=== PATIENT | male | born 1980 | race Caucasian/White ===

== ENCOUNTER 2018-06-18 01:39 | Emergency (ER) | payer OTHER ==
[2018-06-18 01:59] VITALS: BP 149/100; PULSE 92; RESP 18; TEMP 98
[2018-06-18] MEDS ORDERED: diphenhydrAMINE 50 MG CAP PO STA (02:24)
[2018-06-18] MEDS ORDERED: methylPREDNISolone SOD SUCCI 125 MG/2 ML VIAL IM ONE (02:24)
[2018-06-18] MEDS ORDERED: ACET/COD 300 MG/30 MG STARTER PACK 6 TAB BTL PO STA (02:25)
--- NOTE | 2018-06-18 02:31 | ED ---
Skin/Abscess/FB HPI - General Chief complaint: Skin/Abscess/Foreign Body Stated complaint: RASH,PAIN Time Seen by Provider: 06/18/18 02:12 Source: patient, RN notes reviewed Mode of arrival: ambulatory Limitations: no limitations - History of Present Illness Initial comments: This is a 37-year-old male presents emergency Department with chief complaint of rash. Patient states he went camping states that he was in the [place] and states he developed a rash. Patient states it has gotten much worse. He is seen at [facility] was given 1 chest steroids and given Keflex. Patient states she's been taken Keflex and I has rash all over. Patient denies any difficulty swallowing, difficulty breathing. He states he has rash on his arms, legs, face and he states that his penis has swollen. He states is very painful. - Related Data Home Medications Medication Instructions Recorded Confirmed Dextroamphetamine/Amphetamine 20 mg PO DAILY 06/05/15 06/05/15 [Adderall] Hydrocodone/Acetaminophen [[place] 1 each PO BID 06/05/15 06/05/15 10-325] Lisinopril [Prinivil] 10 mg PO DAILY 06/05/15 06/05/15 Previous Rx's Medication Instructions Recorded Albuterol Sulfate [Proair Hfa] 1 - 2 puff INHALATION Q6HR PRN #1 06/05/15 inhaler HYDROcodone/APAP 10-325MG [[place] 1 each PO Q12H PRN #20 tab 06/05/15 10] predniSONE 20 mg PO BID #10 tab 06/05/15 Pramox-Calamine 1-8% Lotion 1 applic TOPICAL QID #1 bottle 06/18/18 [Caladryl] diphenhydrAMINE [Benadryl] 50 mg PO QID PRN #20 capsule 06/18/18 predniSONE 10 mg PO DIRECTED #30 tab 06/18/18 Allergies Allergy/AdvReac Type Severity Reaction Status Date / Time prochlorperazine edisylate Allergy Unknown Verified 06/18/18 01:59 [From Compazine] prochlorperazine maleate Allergy Unknown Verified 06/18/18 01:59 [From Compazine] Review of Systems ROS Statement: Those systems with pertinent positive or pertinent negative responses have been documented in the HPI. ROS Other: All systems not noted in ROS Statement are negative. Past Medical History Past Medical History: Asthma, COPD, Hypertension, Thyroid Disorder History of Any Multi-Drug Resistant Organisms: None Reported Past Surgical History: Orthopedic Surgery Additional Past Surgical History / Comment(s): Right arm, left hand Past Psychological History: ADD/ADHD Smoking Status: Current every day smoker Past Alcohol Use History: Occasional Past Drug Use History: Marijuana General Exam Limitations: no limitations General appearance: alert, in no apparent distress Head exam: Present: atraumatic, normocephalic, normal inspection ENT exam: Present: normal oropharynx Neck exam: Present: normal inspection. Absent: tenderness, meningismus, lymphadenopathy Respiratory exam: Present: normal lung sounds bilaterally. Absent: respiratory distress, wheezes, rales, rhonchi, stridor Cardiovascular Exam: Present: regular rate, normal rhythm, normal heart sounds. Absent: systolic murmur, diastolic murmur, rubs, gallop, clicks exam: Absent: normal inspection (There is swelling of the penile shaft. No open lesions or sores.) Skin exam: Present: rash (There is diffuse erythematous papular vesicular rash with excoriations on the extremities primary, left lower and also on the neck and face region.) Course Vital Signs 06/18/18 01:54 Temperature 98 F Pulse Rate 92 Respiratory 18 Rate Blood Pressure 149/100 O2 Sat by Pulse 98 Oximetry Medical Decision Making - Medical Decision Making 37-year-old male presented from for rash. Patient has a severe rash secondary to contact dermatitis from poison bertha. Patient we given Solu-Medrol, taper of steroids for 12 days, advised to use Caladryl, oral Benadryl. Patient does have some swelling of his penis secondary to the rash. Disposition Clinical Impression: Contact dermatitis, Poison bertha dermatitis Disposition: HOME SELF-CARE Condition: Stable Instructions: Poison [place]tha (ED) Additional Instructions: Please return to the Emergency Department if symptoms worsen or any other concerns. Prescriptions: diphenhydrAMINE [Benadryl] 50 mg PO QID PRN #20 capsule PRN Reason: Itching Pramox-Calamine 1-8% Lotion [Caladryl] 1 applic TOPICAL QID #1 bottle predniSONE 10 mg PO DIRECTED #30 tab Is patient prescribed a controlled substance at d/c from ED?: No Referrals: Orlando Vaughn MD [Primary Care Provider] - 1-2 days Time of Disposition: 02:30
== END 2018-06-18 02:43 | disposition home or self-care (01) ==
LOC: EC 01:39
DX: L23.7 Allergic contact dermatitis due to plants, except food (principal); I10 Essential (primary) hypertension; F90.9 Attention-deficit hyperactivity disorder, unspecified type; F17.200 Nicotine dependence, unspecified, uncomplicated; Z79.891 Long term (current) use of opiate analgesic; Z79.899 Other long term (current) drug therapy; Z88.8 Allergy status to other drugs, medicaments and biological substances
CPT/HCPCS: 99282; 96372; J2930

== ENCOUNTER 2018-06-25 13:09 | Emergency (ER) | payer OTHER ==
[2018-06-25 13:24] VITALS: BP 135/85; PULSE 82; RESP 20; TEMP 98.2
[2018-06-25] MEDS ORDERED: methylPREDNISolone SOD SUCCI 125 MG/2 ML VIAL IM STA (13:50)
--- NOTE | 2018-06-25 13:55 | ED ---
General Adult HPI - General Chief complaint: Skin/Abscess/Foreign Body Stated complaint: rash, swelling Time Seen by Provider: 06/25/18 13:25 Source: patient, RN notes reviewed Mode of arrival: ambulatory Limitations: no limitations - History of Present Illness Initial comments: Patient 37-year-old male presenting to the emergency room today with a chief complaint of rash over the last 2 weeks. Patient does admit that started as a few spots locally to the right forearm. He states spread from there. He does admit that he has been seen multiple times in the emergency room for this rash over the last 2 weeks. States is currently just using Keflex. States it's very itchy. States he does not feel that it's gotten any better. He states he was taking steroids previously is not having over the last week. Patient admits that he's been using Benadryl at home. Patient denies any other people in the home with similar symptoms. Denies any new contacts. Patient denies any recent fever, chills, shortness of breath, chest pain, back pain, abdominal pain , nausea or vomiting, headaches or visual changes, or any other complaints. - Related Data Home Medications Medication Instructions Recorded Confirmed Dextroamphetamine/Amphetamine 20 mg PO DAILY 06/05/15 06/05/15 [Adderall] Hydrocodone/Acetaminophen [[place] 1 each PO BID 06/05/15 06/05/15 10-325] Lisinopril [Prinivil] 10 mg PO DAILY 06/05/15 06/05/15 Previous Rx's Medication Instructions Recorded Albuterol Sulfate [Proair Hfa] 1 - 2 puff INHALATION Q6HR PRN #1 06/05/15 inhaler HYDROcodone/APAP 10-325MG [[place] 1 each PO Q12H PRN #20 tab 06/05/15 10] predniSONE 20 mg PO BID #10 tab 06/05/15 Pramox-Calamine 1-8% Lotion 1 applic TOPICAL QID #1 bottle 06/18/18 [Caladryl] diphenhydrAMINE [Benadryl] 50 mg PO QID PRN #20 capsule 06/18/18 predniSONE 10 mg PO DIRECTED #30 tab 06/18/18 Famotidine [Pepcid] 20 mg PO BID #20 tablet 06/25/18 Permethrin 5% Cream [Elimite] 1 applic TOPICAL ONCE #1 tube 06/25/18 diphenhydrAMINE [Benadryl] 1 - 2 tab PO Q6HR PRN #30 capsule 06/25/18 predniSONE 40 mg PO DAILY 5 Days tab 06/25/18 Allergies Allergy/AdvReac Type Severity Reaction Status Date / Time prochlorperazine edisylate Allergy Unknown Verified 06/25/18 13:24 [From Compazine] prochlorperazine maleate Allergy Unknown Verified 06/25/18 13:24 [From Compazine] Review of Systems ROS Statement: Those systems with pertinent positive or pertinent negative responses have been documented in the HPI. ROS Other: All systems not noted in ROS Statement are negative. Past Medical History Past Medical History: Asthma, COPD, Hypertension, Thyroid Disorder History of Any Multi-Drug Resistant Organisms: None Reported Past Surgical History: Orthopedic Surgery Additional Past Surgical History / Comment(s): Right arm, left hand Past Psychological History: ADD/ADHD Smoking Status: Current every day smoker Past Alcohol Use History: Occasional Past Drug Use History: Marijuana General Exam - General Exam Comments Initial Comments: General: The patient is awake and alert, in no distress, and does not appear acutely ill. Eye: Pupils are equal, round and reactive to light, extra-ocular movements are intact. No nystagmus. There is normal conjunctiva bilaterally. No signs of icterus. Ears, nose, mouth and throat: There are moist mucous membranes and no oral lesions. Neck: The neck is supple, there is no tenderness or JVD. Musculoskeletal: Normal ROM, no tenderness. Strength 5/5. Sensation intact. Pulses equal bilaterally 2+. Neurological: A&O x 3. CN II-XII intact, There are no obvious motor or sensory deficits. Coordination appears grossly intact. Speech is normal. Skin: Patient does have a blanchable rash to the anterior trunk. Multiple excoriated lesions throughout the upper and lower extremities. Psychiatric: Cooperative, appropriate mood & affect, normal judgment. Limitations: no limitations Course Vital Signs 06/25/18 13:22 Temperature 98.2 F Pulse Rate 82 Respiratory 20 Rate Blood Pressure 135/85 O2 Sat by Pulse 98 Oximetry Medical Decision Making - Medical Decision Making Patient will be treated for ALLERGIC reaction placed back on steroids is advised following up with the product manager over the next 2 days. Advised return for any other concerns. Disposition Clinical Impression: Contact dermatitis Disposition: HOME SELF-CARE Condition: Good Instructions: General Allergic Reaction (ED) Additional Instructions: Please use medication as discussed. Please follow-up with product manager in the next 2 days of symptoms have not improved. Please return to emergency room if the symptoms increase or worsen or for any other concerns. Prescriptions: diphenhydrAMINE [Benadryl] 1 - 2 tab PO Q6HR PRN #30 capsule PRN Reason: Allergic Reaction Famotidine [Pepcid] 20 mg PO BID #20 tablet Permethrin 5% Cream [Elimite] 1 applic TOPICAL ONCE #1 tube predniSONE 40 mg PO DAILY 5 Days tab Is patient prescribed a controlled substance at d/c from ED?: No Referrals: Orlando Vaughn MD [Primary Care Provider] - 1-2 days Time of Disposition: 13:54
== END 2018-06-25 14:15 | disposition home or self-care (01) ==
LOC: EC 13:09
DX: L23.9 Allergic contact dermatitis, unspecified cause (principal); I10 Essential (primary) hypertension; F90.9 Attention-deficit hyperactivity disorder, unspecified type; F17.200 Nicotine dependence, unspecified, uncomplicated; Z79.891 Long term (current) use of opiate analgesic; Z79.899 Other long term (current) drug therapy; Z88.8 Allergy status to other drugs, medicaments and biological substances
CPT/HCPCS: 99282; 96372; J2930

== ENCOUNTER 2019-04-29 00:25 | Emergency (ER) | payer OTHER ==
[2019-04-29 00:34] VITALS: BP 155/93; PULSE 73; RESP 18; TEMP 98.3
[2019-04-29] MEDS ORDERED: LIDOCAINE 1% INJ 10MG/ML (20 ML MDV) SQ ONE (00:46)
[2019-04-29] MEDS ORDERED: PENICILLIN VK 500MG STARTER 4 TAB BTL PO STA (00:47)
[2019-04-29] MEDS ORDERED: HYDROcodone/APAP 10-325MG 1 EACH TAB PO ONE (00:47)
--- NOTE | 2019-04-29 01:07 | ED ---
ENT HPI - General Chief complaint: Dental/Oral Stated complaint: Dental Infection Time Seen by Provider: 04/29/19 00:27 Source: patient Mode of arrival: ambulatory Limitations: no limitations - History of Present Illness Initial comments: 38yo male presenting for right lower dental pain. Patient states that a tooth extracted 2 days prior. He states the clot had fallen out and he has had increasing pain. Patient was seen today by his dentist who removed the tooth at [facility]. He states that he was prescribed antibiotic however the pharmacy was closed, Amoxicillin. He states he has increasing pain he states is not able to tolerate it. Patient denies any facial swelling fever or chills night sweats. Patient denies any chest pain stress of breath. The remaining review of systems (-). Upon arrival patient is well-appearing no signs of acute distress/toxicity. Afebrile. - Related Data Home Medications Medication Instructions Recorded Confirmed Dextroamphetamine/Amphetamine 20 mg PO DAILY 06/05/15 06/05/15 [Adderall] Hydrocodone/Acetaminophen [[place] 1 each PO BID 06/05/15 06/05/15 10-325] Lisinopril [Prinivil] 10 mg PO DAILY 06/05/15 06/05/15 Previous Rx's Medication Instructions Recorded Albuterol Sulfate [Proair Hfa] 1 - 2 puff INHALATION Q6HR PRN #1 06/05/15 inhaler HYDROcodone/APAP 10-325MG [[place] 1 each PO Q12H PRN #20 tab 06/05/15 10] predniSONE 20 mg PO BID #10 tab 06/05/15 Pramox-Calamine 1-8% Lotion 1 applic TOPICAL QID #1 bottle 06/18/18 [Caladryl] diphenhydrAMINE [Benadryl] 50 mg PO QID PRN #20 capsule 06/18/18 predniSONE 10 mg PO DIRECTED #30 tab 06/18/18 Famotidine [Pepcid] 20 mg PO BID #20 tablet 06/25/18 Permethrin 5% Cream [Elimite] 1 applic TOPICAL ONCE #1 tube 06/25/18 diphenhydrAMINE [Benadryl] 1 - 2 tab PO Q6HR PRN #30 capsule 06/25/18 predniSONE 40 mg PO DAILY 5 Days tab 06/25/18 HYDROcodone/APAP 5-325MG [[place] 1 tab PO Q6HR PRN 3 Days #12 tab 04/29/19 5-325] Penicillin V Potassium [Pen Vee K] 500 mg PO QID 7 Days #28 tablet 04/29/19 Allergies Allergy/AdvReac Type Severity Reaction Status Date / Time prochlorperazine edisylate Allergy Unknown Verified 04/29/19 00:34 [From Compazine] prochlorperazine maleate Allergy Unknown Verified 04/29/19 00:34 [From Compazine] Review of Systems ROS Statement: Those systems with pertinent positive or pertinent negative responses have been documented in the HPI. ROS Other: All systems not noted in ROS Statement are negative. Past Medical History Past Medical History: Asthma, COPD, Hypertension, Thyroid Disorder History of Any Multi-Drug Resistant Organisms: None Reported Past Surgical History: Orthopedic Surgery Additional Past Surgical History / Comment(s): Right arm, left hand, Past Psychological History: ADD/ADHD Smoking Status: Current every day smoker Past Alcohol Use History: Occasional Past Drug Use History: Marijuana General Exam - General Exam Comments Initial Comments: General: The patient is awake and alert, in no distress, and does not appear acutely ill. Eye: +3 mm pupils are equal, round and reactive to light, extra-ocular movements are intact. No nystagmus. There is normal conjunctiva bilaterally. No signs of icterus. Ears, nose, mouth and throat: There are moist mucous membranes and no oral lesions. Tooth #30 socket without clot. No swelling or fluctuant abscess. No swelling below the tongue or below the angle of the mandible. Neck: The neck is supple, there is no tenderness or JVD. Cardiovascular: There is a regular rate and rhythm. No murmur, rub or gallop is appreciated. Respiratory: Lungs are clear to auscultation, respirations are non-labored, breath sounds are equal. No wheezes, stridor, rales, or rhonchi. Musculoskeletal: Normal ROM, no tenderness. Strength 5/5. Sensation intact. Pulses equal bilaterally 2+. Neurological: A&O x 3. CN II-XII intact, There are no obvious motor or sensory deficits. Coordination appears grossly intact. Speech is normal. Skin: Skin is warm and dry and no rashes or lesions are noted. Psychiatric: Cooperative, appropriate mood & affect, normal judgment. Limitations: no limitations Course Vital Signs 04/29/19 00:32 Temperature 98.3 F Pulse Rate 73 Respiratory 18 Rate Blood Pressure 155/93 O2 Sat by Pulse 97 Oximetry Medical Decision Making - Medical Decision Making 38 yo male with recent extraction of a right lower tooth presented for increasing pain. Upon examination there is dry socket, there is no evidence of clot. There is no fluctuant abscess or facial swelling on examination. No signs of ludwigs angina. Pt denied constitutional symptoms. Afebrile arrival. I used 1/4 cm iodine packing soaked in 1% lidocaine to pack open socket. Patient tolerated procedure well. Patient given oral analgesics in the ER. At this time feel patient is stable for discharge with outpatient dentist follow-up within the next 24 hours. Return parameters were discussed at length the patient verbalized understanding. Patient was prescribed penicillin VK and emergency department part and provided a starter pack given initial dose ~1PM. Discussed case with Dr. Courtney who is agreeable with plan. Disposition Clinical Impression: Dry socket Disposition: HOME SELF-CARE Condition: Good Instructions (If sedation given, give patient instructions): Dry Socket (ED) Additional Instructions: Please use medication as discussed. Please follow-up with dentist in next 24 hours as discussed. Please return to emergency room if the symptoms increase or worsen or for any other concerns-fever, facial swelling, difficulty breathing. Prescriptions: HYDROcodone/APAP 5-325MG [[place] 5-325] 1 tab PO Q6HR PRN 3 Days #12 tab PRN Reason: Severe Pain Penicillin V Potassium [Pen Vee K] 500 mg PO QID 7 Days #28 tablet Is patient prescribed a controlled substance at d/c from ED?: Yes When asked, does pt state using other controlled substances?: No If prescribed controlled substance>3 days was MAPS reviewed?: Prescribed <3 Days If opioid is for acute pain is fill amount 7 days or less?: Yes If Rx opioid, was Start Talking consent form obtained?: Yes Referrals: Orlando Vaughn MD [Primary Care Provider] - 1-2 days Time of Disposition: 01:28
== END 2019-04-29 01:55 | disposition home or self-care (01) ==
LOC: EC 00:25
DX: M27.3 Alveolitis of jaws (principal); I10 Essential (primary) hypertension; F90.9 Attention-deficit hyperactivity disorder, unspecified type; F17.200 Nicotine dependence, unspecified, uncomplicated; Z79.891 Long term (current) use of opiate analgesic; Z79.899 Other long term (current) drug therapy; Z88.8 Allergy status to other drugs, medicaments and biological substances
CPT/HCPCS: 99282; J2001

== ENCOUNTER → 2019-05-18 | Outpatient (CLI) | payer OTHER ==
--- NOTE | 2019-05-19 07:43 | MR ---
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 FINDINGS: MEDIAL MENISCUS: There is a complex tear of the posterior horn medial meniscus LATERAL MENISCUS: Anterior and posterior horns are intact without tear. CRUCIATE LIGAMENTS: The anterior and posterior cruciate ligaments are intact and unremarkable. COLLATERAL LIGAMENTS: The medial collateral ligament and lateral collateral ligament complex are inta ct and there is fluid surrounding the MCL suggestive of grade 1 strain.. EXTENSOR MECHANISM: Visualized quadriceps and patellar tendons are intact. EFFUSION: Trace amount of fluid within the suprapatellar bursa. POPLITEAL CYST: No popliteal/bundy cyst. TRICOMPARTMENT SPACES: Joint spaces preserved. No erosive changes. BONE MARROW SIGNAL: Areas of marrow edema involving the medial tibial plateau and femoral condyle lik orlnado reactive in the basis of trauma. IMPRESSION: 1. Complex posterior horn medial meniscal tear. Bone contusions involving the medial femoral condyle and medial tibial plateau seen. No fracture line. 2. Grade 1 MCL strain
== END | disposition home or self-care (01) ==
LOC: RADMRIMAIN 21:29
PROVIDERS: ATTEND Family Medicine Sports Medicine
DX: S80.01XA Contusion of right knee, initial encounter (principal); S83.241A Other tear of medial meniscus, current injury, right knee, initial encounter

== ENCOUNTER 2020-04-03 23:36 | Emergency (ER) | payer OTHER ==
[2020-04-03] MEDS ORDERED: SODIUM CHLORIDE 0.9% 1,000 ML IV STA (23:41)
[2020-04-03 23:44] LABS: Glucose,Whole Blood 184 mg/dL (75-99)
--- NOTE | 2020-04-03 23:48 | ED ---
General Adult HPI - General Stated complaint: Syncope Time Seen by Provider: 04/03/20 23:38 Source: patient, EMS, RN notes reviewed, old records reviewed Mode of arrival: EMS Limitations: no limitations - History of Present Illness Initial comments: 39-year-old male presenting with an episode of altered mental status, and agonal respirations. Patient was transported by EMS after having a witnessed collapse. He was initially unresponsive with decreased respirations. He did respond to sternal rub. He has a history of seizure disorder and has not been on seizure medication. There was no witnessed seizure activity according to EMS. He had pinpoint pupils. He is denying any illicit drug use. Denies alcohol. He states he did not feel well earlier in the day and had one episode of vomiting. He denies headache. Denies chest pain. Denies abdominal pain. Denies fever or chills. - Related Data Home Medications Medication Instructions Recorded Confirmed Dextroamphetamine/Amphetamine 20 mg PO DAILY 06/05/15 06/05/15 [Adderall] Hydrocodone/Acetaminophen [[place] 1 each PO BID 06/05/15 06/05/15 10-325] Lisinopril [Prinivil] 10 mg PO DAILY 06/05/15 06/05/15 Previous Rx's Medication Instructions Recorded Albuterol Sulfate [Proair Hfa] 1 - 2 puff INHALATION Q6HR PRN #1 06/05/15 inhaler HYDROcodone/APAP 10-325MG [[place] 1 each PO Q12H PRN #20 tab 06/05/15 10] predniSONE [Deltasone] 20 mg PO BID #10 tab 06/05/15 Pramox-Calamine 1-8% Lotion 1 applic TOPICAL QID #1 bottle 06/18/18 [Caladryl] diphenhydrAMINE [Benadryl] 50 mg PO QID PRN #20 capsule 06/18/18 predniSONE 10 mg PO DIRECTED #30 tab 06/18/18 Famotidine [Pepcid] 20 mg PO BID #20 tablet 06/25/18 Permethrin 5% Cream [Elimite] 1 applic TOPICAL ONCE #1 tube 06/25/18 diphenhydrAMINE [Benadryl] 1 - 2 tab PO Q6HR PRN #30 capsule 06/25/18 predniSONE [Deltasone] 40 mg PO DAILY 5 Days tab 06/25/18 HYDROcodone/APAP 5-325MG [[place] 1 tab PO Q6HR PRN 3 Days #12 tab 04/29/19 5-325] Penicillin V Potassium [Pen Vee K] 500 mg PO QID 7 Days #28 tablet 04/29/19 Allergies Allergy/AdvReac Type Severity Reaction Status Date / Time prochlorperazine edisylate Allergy Unknown Verified 04/29/19 00:34 [From Compazine] prochlorperazine maleate Allergy Unknown Verified 04/29/19 00:34 [From Compazine] Review of Systems ROS Statement: Those systems with pertinent positive or pertinent negative responses have been documented in the HPI. ROS Other: All systems not noted in ROS Statement are negative. Past Medical History Past Medical History: Asthma, COPD, Hypertension, Seizure Disorder, Thyroid Disorder History of Any Multi-Drug Resistant Organisms: None Reported Past Surgical History: Orthopedic Surgery Additional Past Surgical History / Comment(s): Right arm, left hand, Past Psychological History: ADD/ADHD Smoking Status: Current every day smoker Past Alcohol Use History: Occasional Past Drug Use History: Marijuana General Exam Limitations: no limitations General appearance: alert, in distress Head exam: Present: atraumatic, normocephalic Eye exam: Absent: PERRL (Pinpoint pupils bilaterally) ENT exam: Present: mucous membranes dry Neck exam: Present: normal inspection. Absent: tenderness Respiratory exam: Present: normal lung sounds bilaterally. Absent: respiratory distress, wheezes Cardiovascular Exam: Present: regular rate, normal rhythm GI/Abdominal exam: Present: soft. Absent: distended, tenderness, guarding, rebound Extremities exam: Present: normal inspection, normal capillary refill. Absent: pedal edema Neurological exam: Present: alert. Absent: motor sensory deficit Psychiatric exam: Present: flat affect Skin exam: Present: warm, intact, diaphoretic Course Vital Signs 04/03/20 04/04/20 04/04/20 23:40 00:32 01:36 Pulse Rate 80 78 Respiratory 15 10 L 18 Rate Blood Pressure 138/96 139/90 O2 Sat by Pulse 96 100 Oximetry - Reevaluation(s) Reevaluation #1: 04/04/20 00:40 Patient alert and oriented, refusing head CT. EKG Findings - EKG Comments: EKG Findings:: EKG: Normal sinus rhythm, rate of 85, [place] interval 170, QRS duration 94, QTC 464, no ischemic changes. Medical Decision Making - Medical Decision Making 39-year-old male presenting with an episode of altered mental status, collapse and unresponsiveness. This was transient, he was alert and oriented when he arrived by EMS. He had pinpoint pupils. He is given Narcan with improvement in mental status and respiratory status. Initially denied any substance abuse. Later indicated that he had taken oxycodone 40 minutes prior to this episode. He takes is for chronic knee pain. Workup in the emergency department reveals normal CBC, CMP significant for hyperglycemia with no other abnormalities. EKG is sinus rhythm. Urine drug screen positive for oxycodone with no other illicit drugs. Alcohol is negative. He is given some IV fluid and observed in the emergency department. No further symptoms. He feels well and reevaluation. Vital signs are stable. He is eager for discharge. I did give the patient referral to primary care as he does not currently have a primary care physician. He will return with any worsening or changing symptoms. I suspect this was related to oxycodone. - Lab Data Result diagrams: 04/03/20 23:53 04/03/20 23:53 Lab Results 04/03/20 04/03/20 04/03/20 Range/Units 23:42 23:53 23:53 WBC 7.6 (3.8-10.6) k/uL RBC 4.42 (4.30-5.90) m/uL Hgb 13.9 (13.0-17.5) gm/dL Hct 43.0 (39.0-53.0) % MCV 97.4 (80.0-100.0) fL MCH 31.5 (25.0-35.0) pg MCHC 32.3 (31.0-37.0) g/dL RDW 14.0 (11.5-15.5) % Plt Count 253 (150-450) k/uL Neutrophils % 60 % Lymphocytes % 31 % Monocytes % 3 % Eosinophils % 4 % Basophils % 0 % Neutrophils # 4.6 (1.3-7.7) k/uL Lymphocytes # 2.4 (1.0-4.8) k/uL Monocytes # 0.3 (0-1.0) k/uL Eosinophils # 0.3 (0-0.7) k/uL Basophils # 0.0 (0-0.2) k/uL PT 10.0 (9.0-12.0) sec INR 1.0 (<1.2) APTT 21.7 L (22.0-30.0) sec Sodium (137-145) mmol/L Potassium (3.5-5.1) mmol/L Chloride (98-107) mmol/L Carbon Dioxide (22-30) mmol/L Anion Gap mmol/L BUN (9-20) mg/dL Creatinine (0.66-1.25) mg/dL Est GFR (CKD-EPI)AfAm (>60 ml/min/1.73 sqM) Est GFR (CKD-EPI)NonAf (>60 ml/min/1.73 sqM) Glucose (74-99) mg/dL POC Glucose (mg/dL) 184 H (75-99) mg/dL POC Glu Slp Teacher ID Terrie, Jarvis Plasma Lactic Acid Loc (0.7-2.0) mmol/L Calcium (8.4-10.2) mg/dL Magnesium (1.6-2.3) mg/dL Total Bilirubin (0.2-1.3) mg/dL AST (17-59) U/L ALT (4-49) U/L Alkaline Phosphatase (38-126) U/L Troponin I (0.000-0.034) ng/mL Total Protein (6.3-8.2) g/dL Albumin (3.5-5.0) g/dL Urine Color Urine Appearance (Clear) Urine pH (5.0-8.0) Ur Specific [place] (1.001-1.035) Urine Protein (Negative) Urine Glucose (UA) (Negative) Urine Ketones (Negative) Urine Blood (Negative) Urine Nitrite (Negative) Urine Bilirubin (Negative) Urine Urobilinogen (<2.0) mg/dL Ur Leukocyte Esterase (Negative) Urine Opiates Screen (NotDetected) Ur Oxycodone Screen (NotDetected) Urine Methadone Screen (NotDetected) Ur Propoxyphene Screen (NotDetected) Ur Barbiturates Screen (NotDetected) U Tricyclic Antidepress (NotDetected) Ur Phencyclidine Scrn (NotDetected) Ur Amphetamines Screen (NotDetected) U Methamphetamines Scrn (NotDetected) U Benzodiazepines Scrn (NotDetected) Urine Cocaine Screen (NotDetected) U Marijuana (THC) Screen (NotDetected) Serum Alcohol mg/dL 04/03/20 04/03/20 04/03/20 Range/Units 23:53 23:53 23:53 WBC (3.8-10.6) k/uL RBC (4.30-5.90) m/uL Hgb (13.0-17.5) gm/dL Hct (39.0-53.0) % MCV (80.0-100.0) fL MCH (25.0-35.0) pg MCHC (31.0-37.0) g/dL RDW (11.5-15.5) % Plt Count (150-450) k/uL Neutrophils % % Lymphocytes % % Monocytes % % Eosinophils % % Basophils % % Neutrophils # (1.3-7.7) k/uL Lymphocytes # (1.0-4.8) k/uL Monocytes # (0-1.0) k/uL Eosinophils # (0-0.7) k/uL Basophils # (0-0.2) k/uL PT (9.0-12.0) sec INR (<1.2) APTT (22.0-30.0) sec Sodium 139 (137-145) mmol/L Potassium 4.4 (3.5-5.1) mmol/L Chloride 104 (98-107) mmol/L Carbon Dioxide 29 (22-30) mmol/L Anion Gap 6 mmol/L BUN 16 (9-20) mg/dL Creatinine 0.80 (0.66-1.25) mg/dL Est GFR (CKD-EPI)AfAm >90 (>60 ml/min/1.73 sqM) Est GFR (CKD-EPI)NonAf >90 (>60 ml/min/1.73 sqM) Glucose 179 H (74-99) mg/dL POC Glucose (mg/dL) (75-99) mg/dL POC Glu Slp Teacher ID Plasma Lactic Acid Loc 0.8 (0.7-2.0) mmol/L Calcium 8.7 (8.4-10.2) mg/dL Magnesium 2.0 (1.6-2.3) mg/dL Total Bilirubin 0.2 (0.2-1.3) mg/dL AST 26 (17-59) U/L ALT 14 (4-49) U/L Alkaline Phosphatase 65 (38-126) U/L Troponin I <0.012 (0.000-0.034) ng/mL Total Protein 6.7 (6.3-8.2) g/dL Albumin 4.1 (3.5-5.0) g/dL Urine Color Urine Appearance (Clear) Urine pH (5.0-8.0) Ur Specific [place] (1.001-1.035) Urine Protein (Negative) Urine Glucose (UA) (Negative) Urine Ketones (Negative) Urine Blood (Negative) Urine Nitrite (Negative) Urine Bilirubin (Negative) Urine Urobilinogen (<2.0) mg/dL Ur Leukocyte Esterase (Negative) Urine Opiates Screen (NotDetected) Ur Oxycodone Screen (NotDetected) Urine Methadone Screen (NotDetected) Ur Propoxyphene Screen (NotDetected) Ur Barbiturates Screen (NotDetected) U Tricyclic Antidepress (NotDetected) Ur Phencyclidine Scrn (NotDetected) Ur Amphetamines Screen (NotDetected) U Methamphetamines Scrn (NotDetected) U Benzodiazepines Scrn (NotDetected) Urine Cocaine Screen (NotDetected) U Marijuana (THC) Screen (NotDetected) Serum Alcohol <10 mg/dL 04/04/20 04/04/20 Range/Units 01:20 01:20 WBC (3.8-10.6) k/uL RBC (4.30-5.90) m/uL Hgb (13.0-17.5) gm/dL Hct (39.0-53.0) % MCV (80.0-100.0) fL MCH (25.0-35.0) pg MCHC (31.0-37.0) g/dL RDW (11.5-15.5) % Plt Count (150-450) k/uL Neutrophils % % Lymphocytes % % Monocytes % % Eosinophils % % Basophils % % Neutrophils # (1.3-7.7) k/uL Lymphocytes # (1.0-4.8) k/uL Monocytes # (0-1.0) k/uL Eosinophils # (0-0.7) k/uL Basophils # (0-0.2) k/uL PT (9.0-12.0) sec INR (<1.2) APTT (22.0-30.0) sec Sodium (137-145) mmol/L Potassium (3.5-5.1) mmol/L Chloride (98-107) mmol/L Carbon Dioxide (22-30) mmol/L Anion Gap mmol/L BUN (9-20) mg/dL Creatinine (0.66-1.25) mg/dL Est GFR (CKD-EPI)AfAm (>60 ml/min/1.73 sqM) Est GFR (CKD-EPI)NonAf (>60 ml/min/1.73 sqM) Glucose (74-99) mg/dL POC Glucose (mg/dL) (75-99) mg/dL POC Glu Slp Teacher ID Plasma Lactic Acid Loc (0.7-2.0) mmol/L Calcium (8.4-10.2) mg/dL Magnesium (1.6-2.3) mg/dL Total Bilirubin (0.2-1.3) mg/dL AST (17-59) U/L ALT (4-49) U/L Alkaline Phosphatase (38-126) U/L Troponin I (0.000-0.034) ng/mL Total Protein (6.3-8.2) g/dL Albumin (3.5-5.0) g/dL Urine Color Yellow Urine Appearance Clear (Clear) Urine pH 7.0 (5.0-8.0) Ur Specific [place] 1.015 (1.001-1.035) Urine Protein Negative (Negative) Urine Glucose (UA) Negative (Negative) Urine Ketones Negative (Negative) Urine Blood Negative (Negative) Urine Nitrite Negative (Negative) Urine Bilirubin Negative (Negative) Urine Urobilinogen <2.0 (<2.0) mg/dL Ur Leukocyte Esterase Negative (Negative) Urine Opiates Screen Not Detected (NotDetected) Ur Oxycodone Screen Detected H (NotDetected) Urine Methadone Screen Not Detected (NotDetected) Ur Propoxyphene Screen Not Detected (NotDetected) Ur Barbiturates Screen Not Detected (NotDetected) U Tricyclic Antidepress Not Detected (NotDetected) Ur Phencyclidine Scrn Not Detected (NotDetected) Ur Amphetamines Screen Not Detected (NotDetected) U Methamphetamines Scrn Not Detected (NotDetected) U Benzodiazepines Scrn Not Detected (NotDetected) Urine Cocaine Screen Not Detected (NotDetected) U Marijuana (THC) Screen Not Detected (NotDetected) Serum Alcohol mg/dL Disposition Clinical Impression: Fainting spell, Drug reaction Disposition: HOME SELF-CARE Condition: Fair Instructions (If sedation given, give patient instructions): Syncope (ED) Is patient prescribed a controlled substance at d/c from ED?: No Referrals: None,Stated [Primary Care Provider] - 1-2 days Junior Paulino MD [STAFF PHYSICIAN] - 1-2 days Time of Disposition: 01:52
[2020-04-04 00:06] LABS: Basophils % (A) 0 %; Eosinophils # (A) 0.3 k/uL (0-0.7); Eosinophils % (A) 4 %; HGB 13.9 gm/dL (13.0-17.5); Lymphocytes # (A) 2.4 k/uL (1.0-4.8); Lymphocytes % (A) 31 %; MCH 31.5 pg (25.0-35.0); MCHC 32.3 g/dL (31.0-37.0); MCV 97.4 fL (80.0-100.0); Mean Platelet Volume 7.6; Monocytes # (A) 0.3 k/uL (0-1.0); Monocytes % (A) 3 %; Neutrophils # (A) 4.6 k/uL (1.3-7.7); Neutrophils % (A) 60 %; Platelet Count 253 k/uL (150-450); RBC 4.42 m/uL (4.30-5.90); WBC 7.6 k/uL (3.8-10.6)
[2020-04-04] MEDS ORDERED: NALOXONE 0.4 MG/ML 1 ML VIAL IV STA (00:16)
[2020-04-04 00:21] LABS: ALT 14 U/L (4-49); AST 26 U/L (17-59); African American GFR (CKD) >90 (>60 ml/min/1.73 sqM); Albumin 4.1 g/dL (3.5-5.0); Alcohol <10 mg/dL; Alkaline Phosphatase 65 U/L (38-126); Anion Gap 6 mmol/L; Blood Urea Nitrogen 16 mg/dL (9-20); Calcium 8.7 mg/dL (8.4-10.2); Carbon Dioxide 29 mmol/L (22-30); Chloride 104 mmol/L (98-107); Glucose 179 mg/dL (74-99); Non-African American GFR(CKD) >90 (>60 ml/min/1.73 sqM); Potassium 4.4 mmol/L (3.5-5.1); Sodium 139 mmol/L (137-145); Total Bilirubin 0.2 mg/dL (0.2-1.3); Total Protein 6.7 g/dL (6.3-8.2)
[2020-04-04 00:27] LABS: Partial Thromboplastin Time 21.7 sec (22.0-30.0)
--- NOTE | 2020-04-04 00:54 | XR ---
EXAMINATION TYPE: XR chest 2V DATE OF EXAM: 04/04/2020 COMPARISON: 06/05/2015 HISTORY: Syncope TECHNIQUE: FINDINGS: Heart and mediastinum are normal. Lungs are clear. Diaphragm is normal. Bony thorax appears normal. There are no hilar masses. There is old left healed clavicle fracture. IMPRESSION: Normal chest. No adverse change.
[2020-04-04 01:28] LABS: Appearance,Urine Clear (Clear); Bilirubin,Urine Negative (Negative); Blood,Urine Negative (Negative); Color,Urine Yellow; Glucose,Urine (UA) Negative (Negative); Ketones,Urine Negative (Negative); Leukocyte Esterase,Urine Negative (Negative); Nitrite,Urine Negative (Negative); Protein,Urine Negative (Negative); Specific Gravity,Urine 1.015 (1.001-1.035); Urobilinogen,Urine <2.0 mg/dL (<2.0)
[2020-04-04 01:37] VITALS: BP 139/90; PULSE 78; RESP 18
[2020-04-04 01:39] LABS: Amphetamine Screen,Urine Not Detected (NotDetected); Barbiturate Screen,Urine Not Detected (NotDetected); Benzodiazepines Screen,Urine Not Detected (NotDetected); Cocaine Screen,Urine Not Detected (NotDetected); Methadone Screen, Urine Not Detected (NotDetected); Opiate Screen,Urine Not Detected (NotDetected); Oxycodone Screen, Urine Detected (NotDetected); Phencyclidine Screen,Urine Not Detected (NotDetected); Tricyclic Antidepressant,Urine Not Detected (NotDetected); Urn Cannabinoid Scrn Not Detected (NotDetected)
== END 2020-04-04 02:04 | disposition home or self-care (01) ==
LOC: EC 23:36
DX: R55 Syncope and collapse (principal); R41.82 Altered mental status, unspecified; R11.10 Vomiting, unspecified; T40.2X5A Adverse effect of other opioids, initial encounter; F90.9 Attention-deficit hyperactivity disorder, unspecified type; I10 Essential (primary) hypertension; F17.200 Nicotine dependence, unspecified, uncomplicated; Z79.899 Other long term (current) drug therapy; Z88.8 Allergy status to other drugs, medicaments and biological substances
CPT/HCPCS: 36415; 93005; 80053; 83605; 83735; 84484; 85025; 85610; 85730; 81003; 80306; 71046; 99285; 96374; 96361; G0480; J2310; 80320

== ENCOUNTER 2020-05-14 15:41 | Emergency (ER) | payer OTHER ==
[2020-05-14 15:51] VITALS: BP 154/106; PULSE 86; RESP 18; TEMP 98
[2020-05-14] MEDS ORDERED: SODIUM CHLORIDE 0.9% 500 ML 500 ML IV STA (16:11)
--- NOTE | 2020-05-14 16:42 | ED ---
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 Patient states 4 days ago he started noticing his forehead wasn't moving and then his eyelid was shivering all the way. Patient states the progress to drooping in the mouth and having drank fall out of the left side of his mouth. Patient denies any headache patient denies numbness weakness. Patient denies any other symptoms at this time. Patient states her exact symptoms symptoms he's had the past Hogue's palsy. Again his been 4 days since symptoms began. - Related Data Home Medications Medication Instructions Recorded Confirmed Dextroamphetamine/Amphetamine 20 mg PO DAILY 06/05/15 06/05/15 [Adderall] Hydrocodone/Acetaminophen [[place] 1 each PO BID 06/05/15 06/05/15 10-325] Lisinopril [Prinivil] 10 mg PO DAILY 06/05/15 06/05/15 Previous Rx's Medication Instructions Recorded Albuterol Sulfate [Proair Hfa] 1 - 2 puff INHALATION Q6HR PRN #1 06/05/15 inhaler HYDROcodone/APAP 10-325MG [[place] 1 each PO Q12H PRN #20 tab 06/05/15 10] predniSONE [Deltasone] 20 mg PO BID #10 tab 06/05/15 Pramox-[place] 1-8% Lotion 1 applic TOPICAL QID #1 bottle 06/18/18 [Caladryl] diphenhydrAMINE [Benadryl] 50 mg PO QID PRN #20 capsule 06/18/18 Famotidine [Pepcid] 20 mg PO BID #20 tablet 06/25/18 Permethrin 5% Cream [Elimite] 1 applic TOPICAL ONCE #1 tube 06/25/18 diphenhydrAMINE [Benadryl] 1 - 2 tab PO Q6HR PRN #30 capsule 06/25/18 predniSONE [Deltasone] 40 mg PO DAILY 5 Days tab 06/25/18 HYDROcodone/APAP 5-325MG [[place] 1 tab PO Q6HR PRN 3 Days #12 tab 04/29/19 5-325] Penicillin V Potassium [Pen Vee K] 500 mg PO QID 7 Days #28 tablet 04/29/19 predniSONE 30 mg PO BID #42 tab 05/14/20 valACYclovir HCL [Valacyclovir] 1,000 mg PO Q8H #10 tab 05/14/20 Allergies Allergy/AdvReac Type Severity Reaction Status Date / Time prochlorperazine edisylate Allergy Unknown Verified 05/14/20 15:46 [From Compazine] prochlorperazine maleate Allergy Unknown Verified 05/14/20 15:46 [From Compazine] Review of Systems ROS Statement: Those systems with pertinent positive or pertinent negative responses have been documented in the HPI. ROS Other: All systems not noted in ROS Statement are negative. Past Medical History Past Medical History: Asthma, COPD, Hypertension, Seizure Disorder, Thyroid Disorder History of Any Multi-Drug Resistant Organisms: None Reported Past Surgical History: Orthopedic Surgery Additional Past Surgical History / Comment(s): Right arm, left hand, Past Psychological History: ADD/ADHD Smoking Status: Current every day smoker Past Alcohol Use History: None Reported, Occasional Past Drug Use History: Marijuana General Exam - General Exam Comments Initial Comments: GENERAL: Patient is well-developed and well-nourished. Patient is nontoxic and well- hydrated and is in no acute distress. ENT: Neck is soft and supple. No significant lymphadenopathy is noted. Oropharynx is clear. Moist mucous membranes. EYES: The sclera were anicteric and conjunctiva were pink and moist. Extraocular movements were intact and pupils were equal round and reactive to light. E yelids were unremarkable. SKIN: Skin is clear with no lesions or rashes and otherwise unremarkable. NEUROLOGIC: Patient is alert and oriented x3. Patient has complete left-sided facial paralysis including her forehead the left eyelid as well as the side of his face.. Motor and sensory are also intact. Normal speech, volume and content. Symmetrical smile. MUSCULOSKELETAL: Normal extremities with adequate strength and full range of motion. LYMPHATICS: No significant lymphadenopathy is noted PSYCHIATRIC: Normal psychiatric evaluation. Limitations: no limitations Course Vital Signs 05/14/20 15:46 Temperature 98 F Pulse Rate 86 Respiratory 18 Rate Blood Pressure 154/106 O2 Sat by Pulse 97 Oximetry Disposition Clinical Impression: Hogue's palsy Disposition: HOME SELF-CARE Condition: Good Instructions (If sedation given, give patient instructions): [place]ogue Palsy (ED) Prescriptions: predniSONE 30 mg PO BID #42 tab valACYclovir HCL [Valacyclovir] 1,000 mg PO Q8H #10 tab Is patient prescribed a controlled substance at d/c from ED?: No Referrals: Stephen Feldman MD [Primary Care Provider] - 1-2 days Time of Disposition: 16:35
== END 2020-05-14 16:49 | disposition home or self-care (01) ==
LOC: EC 15:41
DX: G51.0 Bell's palsy (principal); I10 Essential (primary) hypertension; F90.9 Attention-deficit hyperactivity disorder, unspecified type; F17.200 Nicotine dependence, unspecified, uncomplicated; Z79.899 Other long term (current) drug therapy; Z88.8 Allergy status to other drugs, medicaments and biological substances
CPT/HCPCS: 99284

== ENCOUNTER 2020-07-08 11:00 | Emergency (ER) | payer OTHER ==
[2020-07-08 11:05] VITALS: BP 159/103; PULSE 105; RESP 18; TEMP 97.6
[2020-07-08] MEDS ORDERED: SODIUM CHLORIDE 0.9% 1,000 ML IV ONE (11:34)
--- NOTE | 2020-07-08 11:37 | ED ---
Abdominal Pain HPI - General Chief Complaint: Abdominal Pain Stated Complaint: Blood in urine and pain Time Seen by Provider: 07/08/20 11:20 Source: patient, family, RN notes reviewed, old records reviewed Mode of arrival: ambulatory - History of Present Illness Initial Comments: Patient is a 39-year-old male presents emergency room today with 1 week of dysuria. Patient states that yesterday evening he noticed significant hematuria and slimy urinary output. Patient reports that he started to have some right- sided testicular pain yesterday but that is 108 this time and he does complain of some right flank pain. He reports that a family history of kidney failure. He states that he has had no concern for 60 transmitted infections. He denies any change in bowel habits. - Related Data Home Medications Medication Instructions Recorded Confirmed Dextroamphetamine/Amphetamine 20 mg PO DAILY 06/05/15 06/05/15 [Adderall] Hydrocodone/Acetaminophen [[place] 1 each PO BID 06/05/15 06/05/15 10-325] Lisinopril [Prinivil] 10 mg PO DAILY 06/05/15 06/05/15 Previous Rx's Medication Instructions Recorded Albuterol Sulfate [Proair Hfa] 1 - 2 puff INHALATION Q6HR PRN #1 06/05/15 inhaler HYDROcodone/APAP 10-325MG [[place] 1 each PO Q12H PRN #20 tab 06/05/15 10] predniSONE [Deltasone] 20 mg PO BID #10 tab 06/05/15 Pramox-Calamine 1-8% Lotion 1 applic TOPICAL QID #1 bottle 06/18/18 [Caladryl] diphenhydrAMINE [Benadryl] 50 mg PO QID PRN #20 capsule 06/18/18 Famotidine [Pepcid] 20 mg PO BID #20 tablet 06/25/18 Permethrin 5% Cream [Elimite] 1 applic TOPICAL ONCE #1 tube 06/25/18 diphenhydrAMINE [Benadryl] 1 - 2 tab PO Q6HR PRN #30 capsule 06/25/18 predniSONE [Deltasone] 40 mg PO DAILY 5 Days tab 06/25/18 HYDROcodone/APAP 5-325MG [[place] 1 tab PO Q6HR PRN 3 Days #12 tab 04/29/19 5-325] Penicillin V Potassium [Pen Vee K] 500 mg PO QID 7 Days #28 tablet 04/29/19 predniSONE 30 mg PO BID #42 tab 05/14/20 valACYclovir HCL [Valacyclovir] 1,000 mg PO Q8H #10 tab 05/14/20 Azithromycin [Zithromax] 1,000 mg PO DAILY 1 Days #2 tab 07/08/20 Cephalexin [Keflex] 500 mg PO Q6H #40 cap 07/08/20 Allergies Allergy/AdvReac Type Severity Reaction Status Date / Time prochlorperazine edisylate Allergy Unknown Verified 07/08/20 11:05 [From Compazine] prochlorperazine maleate Allergy Unknown Verified 07/08/20 11:05 [From Likeedsazine] Review of Systems ROS Statement: Those systems with pertinent positive or pertinent negative responses have been documented in the HPI. ROS Other: All systems not noted in ROS Statement are negative. Past Medical History Past Medical History: Asthma, COPD, Hypertension, Thyroid Disorder History of Any Multi-Drug Resistant Organisms: C-DIFF Date of last positivie culture/infection: 2009 MDRO Source:: stool Past Surgical History: Orthopedic Surgery Additional Past Surgical History / Comment(s): Right arm, left hand, Past Psychological History: ADD/ADHD Smoking Status: Current every day smoker Past Alcohol Use History: None Reported Past Drug Use History: Marijuana General Exam - General Exam Comments Initial Comments: Alert and oriented 39-year-old male. No significant distress. General appearance: alert, in no apparent distress Head exam: Present: atraumatic, normocephalic, normal inspection Eye exam: Present: normal appearance, PERRL, EOMI. Absent: scleral icterus, conjunctival injection, periorbital swelling ENT exam: Present: normal exam, mucous membranes moist Neck exam: Present: normal inspection. Absent: tenderness, meningismus, l ymphadenopathy Respiratory exam: Present: normal lung sounds bilaterally Cardiovascular Exam: Present: regular rate, normal rhythm, normal heart sounds. Absent: systolic murmur, diastolic murmur, rubs, gallop, clicks GI/Abdominal exam: Present: soft, normal bowel sounds. Absent: distended, tenderness, guarding, rebound, rigid Extremities exam: Present: normal inspection, full ROM, normal capillary refill. Absent: tenderness, pedal edema, joint swelling, calf tenderness Back exam: Present: normal inspection Neurological exam: Present: alert, oriented X3, CN II-XII intact Course Vital Signs 07/08/20 11:01 Temperature 97.6 F Pulse Rate 105 H Respiratory 18 Rate Blood Pressure 159/103 O2 Sat by Pulse 100 Oximetry Medical Decision Making - Medical Decision Making There is 72-year-old male presents the ER today for concern for dysuria for a week. Patient at this time given IV fluids had right flank pain. His urinalysi s did show significant infection or blood. Before I could treat the Patient with antibiotics here in the ER he stated he had a leave against medical office manager picker / packer his son. Discussed I will send or prescription for antibiotics and await urine culture. I discussed follow-up with PCP. He will be leaving against medical office manager. He left in a hurry to picker / packer his chid. Did not wait for antibiotics. - Lab Data Result diagrams: 07/08/20 11:58 07/08/20 11:58 Lab Results 07/08/20 07/08/20 07/08/20 Range/Units 11:27 11:58 11:58 WBC 8.5 (3.8-10.6) k/uL RBC 4.52 (4.30-5.90) m/uL Hgb 14.4 (13.0-17.5) gm/dL Hct 43.3 (39.0-53.0) % MCV 95.7 (80.0-100.0) fL MCH 31.8 (25.0-35.0) pg MCHC 33.2 (31.0-37.0) g/dL RDW 13.0 (11.5-15.5) % Plt Count 225 (150-450) k/uL Neutrophils % 80 % Lymphocytes % 11 % Monocytes % 6 % Eosinophils % 2 % Basophils % 0 % Neutrophils # 6.8 (1.3-7.7) k/uL Lymphocytes # 1.0 (1.0-4.8) k/uL Monocytes # 0.5 (0-1.0) k/uL Eosinophils # 0.2 (0-0.7) k/uL Basophils # 0.0 (0-0.2) k/uL PT 9.3 (9.0-12.0) sec INR 0.9 (<1.2) APTT 24.8 (22.0-30.0) sec Sodium (137-145) mmol/L Potassium (3.5-5.1) mmol/L Chloride (98-107) mmol/L Carbon Dioxide (22-30) mmol/L Anion Gap mmol/L BUN (9-20) mg/dL Creatinine (0.66-1.25) mg/dL Est GFR (CKD-EPI)AfAm (>60 ml/min/1.73 sqM) Est GFR (CKD-EPI)NonAf (>60 ml/min/1.73 sqM) Glucose (74-99) mg/dL Calcium (8.4-10.2) mg/dL Total Bilirubin (0.2-1.3) mg/dL AST (17-59) U/L ALT (4-49) U/L Alkaline Phosphatase (38-126) U/L Total Protein (6.3-8.2) g/dL Albumin (3.5-5.0) g/dL Urine Color Yellow Urine Appearance Cloudy (Clear) Urine pH 6.0 (5.0-8.0) Ur Specific [place] 1.030 (1.001-1.035) Urine Protein 1+ H (Negative) Urine Glucose (UA) Negative (Negative) Urine Ketones Negative (Negative) Urine Blood Moderate H (Negative) Urine Nitrite Negative (Negative) Urine Bilirubin Negative (Negative) Urine Urobilinogen 2.0 (<2.0) mg/dL Ur Leukocyte Esterase Large H (Negative) Urine RBC 62 H (0-5) /hpf Urine WBC 90 H (0-5) /hpf Urine WBC Clumps Few H (None) /hpf Ur Squamous Epith Cells <1 (0-4) /hpf Urine Bacteria Moderate H (None) /hpf Urine Mucus Many H (None) /hpf 07/08/20 Range/Units 11:58 WBC (3.8-10.6) k/uL RBC (4.30-5.90) m/uL Hgb (13.0-17.5) gm/dL Hct (39.0-53.0) % MCV (80.0-100.0) fL MCH (25.0-35.0) pg MCHC (31.0-37.0) g/dL RDW (11.5-15.5) % Plt Count (150-450) k/uL Neutrophils % % Lymphocytes % % Monocytes % % Eosinophils % % Basophils % % Neutrophils # (1.3-7.7) k/uL Lymphocytes # (1.0-4.8) k/uL Monocytes # (0-1.0) k/uL Eosinophils # (0-0.7) k/uL Basophils # (0-0.2) k/uL PT (9.0-12.0) sec INR (<1.2) APTT (22.0-30.0) sec Sodium 137 (137-145) mmol/L Potassium 3.7 (3.5-5.1) mmol/L Chloride 102 (98-107) mmol/L Carbon Dioxide 29 (22-30) mmol/L Anion Gap 6 mmol/L BUN 15 (9-20) mg/dL Creatinine 0.91 (0.66-1.25) mg/dL Est GFR (CKD-EPI)AfAm >90 (>60 ml/min/1.73 sqM) Est GFR (CKD-EPI)NonAf >90 (>60 ml/min/1.73 sqM) Glucose 97 (74-99) mg/dL Calcium 8.9 (8.4-10.2) mg/dL Total Bilirubin 0.6 (0.2-1.3) mg/dL AST 29 (17-59) U/L ALT 18 (4-49) U/L Alkaline Phosphatase 70 (38-126) U/L Total Protein 6.3 (6.3-8.2) g/dL Albumin 3.9 (3.5-5.0) g/dL Urine Color Urine Appearance (Clear) Urine pH (5.0-8.0) Ur Specific [place] (1.001-1.035) Urine Protein (Negative) Urine Glucose (UA) (Negative) Urine Ketones (Negative) Urine Blood (Negative) Urine Nitrite (Negative) Urine Bilirubin (Negative) Urine Urobilinogen (<2.0) mg/dL Ur Leukocyte Esterase (Negative) Urine RBC (0-5) /hpf Urine WBC (0-5) /hpf Urine WBC Clumps (None) /hpf Ur Squamous Epith Cells (0-4) /hpf Urine Bacteria (None) /hpf Urine Mucus (None) /hpf Disposition Clinical Impression: UTI (urinary tract infection) Disposition: Left Against Medical Advice Condition: Stable Instructions (If sedation given, give patient instructions): Urinary Tract Infection in Men (ED) Additional Instructions: Please use medication as discussed. Please follow up with family doctor if symptoms have not improved over the next two days. Please return to the emergency room if your symptoms increase or worsen or for any other concerns. Prescriptions: Cephalexin [Keflex] 500 mg PO Q6H #40 cap Azithromycin [Zithromax] 1,000 mg PO DAILY 1 Days #2 tab Is patient prescribed a controlled substance at d/c from ED?: No Referrals: Stephen Feldman MD [Primary Care Provider] - 1-2 days Time of Disposition: 12:33
[2020-07-08 11:53] LABS: Appearance,Urine Cloudy (Clear); Bacteria,Urine Moderate /hpf; Bilirubin,Urine Negative (Negative); Blood,Urine Moderate (Negative); Color,Urine Yellow; Glucose,Urine (UA) Negative (Negative); Ketones,Urine Negative (Negative); Leukocyte Esterase,Urine Large (Negative); Mucus,Urine Many /hpf; Nitrite,Urine Negative (Negative); Protein,Urine 1+ (Negative); RBC,Urine 62 /hpf (0-5); Squamous Epithelial Cell,Urine <1 /hpf (0-4); WBC,Urine 90 /hpf (0-5)
[2020-07-08 12:16] LABS: Basophils % (A) 0 %; Eosinophils # (A) 0.2 k/uL (0-0.7); Eosinophils % (A) 2 %; HCT 43.3 % (39.0-53.0); HGB 14.4 gm/dL (13.0-17.5); Lymphocytes % (A) 11 %; MCH 31.8 pg (25.0-35.0); MCHC 33.2 g/dL (31.0-37.0); MCV 95.7 fL (80.0-100.0); Mean Platelet Volume 6.6; Monocytes # (A) 0.5 k/uL (0-1.0); Monocytes % (A) 6 %; Neutrophils # (A) 6.8 k/uL (1.3-7.7); Neutrophils % (A) 80 %; Platelet Count 225 k/uL (150-450); RBC 4.52 m/uL (4.30-5.90); WBC 8.5 k/uL (3.8-10.6)
[2020-07-08 12:30] LABS: INR 0.9 (<1.2); Partial Thromboplastin Time 24.8 sec (22.0-30.0); Prothrombin Time 9.3 sec (9.0-12.0)
[2020-07-08] MEDS ORDERED: cefTRIAXone 250 MG VIAL IM STA (12:32)
[2020-07-08 12:44] LABS: ALT 18 U/L (4-49); AST 29 U/L (17-59); African American GFR (CKD) >90 (>60 ml/min/1.73 sqM); Albumin 3.9 g/dL (3.5-5.0); Alkaline Phosphatase 70 U/L (38-126); Anion Gap 6 mmol/L; Blood Urea Nitrogen 15 mg/dL (9-20); Calcium 8.9 mg/dL (8.4-10.2); Carbon Dioxide 29 mmol/L (22-30); Chloride 102 mmol/L (98-107); Glucose 97 mg/dL (74-99); Non-African American GFR(CKD) >90 (>60 ml/min/1.73 sqM); Potassium 3.7 mmol/L (3.5-5.1); Sodium 137 mmol/L (137-145); Total Bilirubin 0.6 mg/dL (0.2-1.3); Total Protein 6.3 g/dL (6.3-8.2)
== END 2020-07-08 12:35 | disposition left against medical advice (07) ==
LOC: EC 11:00
DX: N39.0 Urinary tract infection, site not specified (principal); F17.200 Nicotine dependence, unspecified, uncomplicated; F90.9 Attention-deficit hyperactivity disorder, unspecified type; I10 Essential (primary) hypertension; Z79.899 Other long term (current) drug therapy; Z53.29 Procedure and treatment not carried out because of patient's decision for other reasons
CPT/HCPCS: 36415; 80053; 81001; 85025; 85610; 85730; 87086; 96360; 99284

== ENCOUNTER 2021-11-27 23:12 | Emergency (ER) | payer OTHER ==
[2021-11-27 23:24] VITALS: BP 142/92; PULSE 90; RESP 16; TEMP 97.9
--- NOTE | 2021-11-27 23:47 | ED ---
Overdose HPI - General Chief Complaint: Overdose Stated Complaint: [place], possible overdose Time Seen by Provider: 11/27/21 23:29 Source: patient Mode of arrival: ambulatory Limitations: no limitations - History of Present Illness Initial Comments: This patient is a 41-year-old man who had injected out he states was methamphetamine tonight. I he states that he then experienced palpitations, shortness of breath and chest tightness. He states that the symptoms have nearly entirely resolved by the time I have interviewed him. He was concerned that he had overdosed. MD Complaint: accidental overdose Onset/Timin -: minutes(s) How Overdose Was Discovered: family/friend present at time Context: Accidental Overdose: wanted to get high Associated Symptoms: shortness of breath, palpitations Treatments Prior to Arrival: none - Related Data Home Medications Medication Instructions Recorded Confirmed Dextroamphetamine/Amphetamine 20 mg PO DAILY 06/05/15 06/05/15 [Adderall] Hydrocodone/Acetaminophen [[place] 1 each PO BID 06/05/15 06/05/15 10-325] Lisinopril [Prinivil] 10 mg PO DAILY 06/05/15 06/05/15 Previous Rx's Medication Instructions Recorded Albuterol Sulfate [Proair Hfa] 1 - 2 puff INHALATION Q6HR PRN #1 06/05/15 inhaler HYDROcodone/APAP 10-325MG [[place] 1 each PO Q12H PRN #20 tab 06/05/15 10] predniSONE [Deltasone] 20 mg PO BID #10 tab 06/05/15 Pramox-Calamine 1-8% Lotion 1 applic TOPICAL QID #1 bottle 06/18/18 [Caladryl] diphenhydrAMINE [Benadryl] 50 mg PO QID PRN #20 capsule 06/18/18 Famotidine [Pepcid] 20 mg PO BID #20 tablet 06/25/18 Permethrin 5% Cream [Elimite] 1 applic TOPICAL ONCE #1 tube 06/25/18 diphenhydrAMINE [Benadryl] 1 - 2 tab PO Q6HR PRN #30 capsule 06/25/18 predniSONE [Deltasone] 40 mg PO DAILY 5 Days tab 06/25/18 HYDROcodone/APAP 5-325MG [[place] 1 tab PO Q6HR PRN 3 Days #12 tab 04/29/19 5-325] Penicillin V Potassium [Pen Vee K] 500 mg PO QID 7 Days #28 tablet 04/29/19 predniSONE 30 mg PO BID #42 tab 05/14/20 valACYclovir HCL [Valacyclovir] 1,000 mg PO Q8H #10 tab 05/14/20 Azithromycin [Zithromax] 1,000 mg PO DAILY 1 Days #2 tab 07/08/20 Cephalexin [Keflex] 500 mg PO Q6H #40 cap 07/08/20 Allergies Allergy/AdvReac Type Severity Reaction Status Date / Time prochlorperazine edisylate Allergy Unknown Verified 11/27/21 23:24 [From Compazine] prochlorperazine maleate Allergy Unknown Verified 11/27/21 23:24 [From Compazine] Review of Systems ROS Statement: Those systems with pertinent positive or pertinent negative responses have been documented in the HPI. ROS Other: All systems not noted in ROS Statement are negative. Eyes: Denies: vision change Respiratory: Reports: dyspnea. Denies: cough Cardiovascular: Reports: chest pain, palpitations. Denies: orthopnea, edema, syncope Gastrointestinal: Denies: abdominal pain, vomiting, diarrhea Genitourinary: Denies: dysuria, hematuria Musculoskeletal: Denies: back pain Skin: Denies: rash Neurological: Denies: headache, weakness Past Medical History Past Medical History: Asthma, COPD, Hypertension, Thyroid Disorder History of Any Multi-Drug Resistant Organisms: C-DIFF Date of last positivie culture/infection: 2009 MDRO Source:: stool Past Surgical History: Orthopedic Surgery Additional Past Surgical History / Comment(s): Right arm, left hand, Past Psychological History: ADD/ADHD Smoking Status: Current every day smoker Past Alcohol Use History: None Reported Past Drug Use History: Marijuana, Methamphetamine General Exam Limitations: no limitations General appearance: alert, in no apparent distress Head exam: Present: atraumatic, normocephalic Eye exam: Present: normal appearance. Absent: scleral icterus, conjunctival injection Respiratory exam: Present: normal lung sounds bilaterally. Absent: respiratory distress, wheezes, rales, rhonchi, stridor Cardiovascular Exam: Present: regular rate, normal rhythm, normal heart sounds. Absent: systolic murmur, diastolic murmur, rubs, gallop GI/Abdominal exam: Present: soft. Absent: distended, tenderness, guarding, r ebound, rigid, mass Extremities exam: Present: normal inspection, normal capillary refill. Absent: pedal edema, calf tenderness Back exam: Present: normal inspection Neurological exam: Present: alert Skin exam: Present: warm, dry, intact, normal color. Absent: rash Course Vital Signs 11/27/21 23:22 Temperature 97.9 F Pulse Rate 90 Respiratory 16 Rate Blood Pressure 142/92 O2 Sat by Pulse 98 Oximetry Medical Decision Making - Medical Decision Making The patient did leave prior to completing treatment. When I went to reevaluate him he was not there. After searching the department it appears patient had left without completing services. - Lab Data Result diagrams: 11/28/21 00:42 11/28/21 00:42 Lab Results 11/28/21 11/28/21 11/28/21 Range/Units 00:42 00:42 00:42 WBC 6.4 (3.8-10.6) k/uL RBC 4.47 (4.30-5.90) m/uL Hgb 14.3 (13.0-17.5) gm/dL Hct 42.1 (39.0-53.0) % MCV 94.1 (80.0-100.0) fL MCH 31.9 (25.0-35.0) pg MCHC 33.9 (31.0-37.0) g/dL RDW 12.2 (11.5-15.5) % Plt Count 264 (150-450) k/uL MPV 7.0 Neutrophils % 71 % Lymphocytes % 19 % Monocytes % 5 % Eosinophils % 5 % Basophils % 0 % Neutrophils # 4.5 (1.3-7.7) k/uL Lymphocytes # 1.2 (1.0-4.8) k/uL Monocytes # 0.3 (0-1.0) k/uL Eosinophils # 0.3 (0-0.7) k/uL Basophils # 0.0 (0-0.2) k/uL Sodium 138 (137-145) mmol/L Potassium 4.6 (3.5-5.1) mmol/L Chloride 105 (98-107) mmol/L Carbon Dioxide 27 (22-30) mmol/L Anion Gap 6 mmol/L BUN 21 H (9-20) mg/dL Creatinine 1.05 (0.66-1.25) mg/dL Est GFR (CKD-EPI)AfAm >90 (>60 ml/min/1.73 sqM) Est GFR (CKD-EPI)NonAf 90 (>60 ml/min/1.73 sqM) Glucose 120 H (74-99) mg/dL Calcium 8.9 (8.4-10.2) mg/dL Total Bilirubin 0.6 (0.2-1.3) mg/dL AST 43 (17-59) U/L ALT 24 (4-49) U/L Alkaline Phosphatase 68 (38-126) U/L Troponin I <0.012 (0.000-0.034) ng/mL Total Protein 6.6 (6.3-8.2) g/dL Albumin 4.1 (3.5-5.0) g/dL - EKG Data -: EKG Interpreted by Me EKG shows normal: sinus rhythm, axis (Normal), intervals (Normal), QRS complexes (Normal), ST-T waves (Normal) Rate: normal (Rate 78 bpm) Interpretation: normal EKG Disposition Clinical Impression: Chest pain Disposition: Left Against Medical Advice Condition: Undetermined Is patient prescribed a controlled substance at d/c from ED?: No Referrals: Stephen Feldman MD [Primary Care Provider] - 1-2 days
--- NOTE | 2021-11-28 00:53 | XR ---
EXAMINATION TYPE: XR chest 2V DATE OF EXAM: 11/28/2021 COMPARISON: 04/04/2020 HISTORY: Chest pain TECHNIQUE: FINDINGS: Heart and mediastinum are normal. Lungs are clear. Diaphragm is normal. There is old left h ealed fracture of the clavicle. Bony thorax is intact. IMPRESSION: No active cardiopulmonary disease. No change.
[2021-11-28 01:01] LABS: Basophils % (A) 0 %; Eosinophils # (A) 0.3 k/uL (0-0.7); Eosinophils % (A) 5 %; HCT 42.1 % (39.0-53.0); HGB 14.3 gm/dL (13.0-17.5); Lymphocytes # (A) 1.2 k/uL (1.0-4.8); Lymphocytes % (A) 19 %; MCH 31.9 pg (25.0-35.0); MCHC 33.9 g/dL (31.0-37.0); MCV 94.1 fL (80.0-100.0); Monocytes # (A) 0.3 k/uL (0-1.0); Monocytes % (A) 5 %; Neutrophils # (A) 4.5 k/uL (1.3-7.7); Neutrophils % (A) 71 %; Platelet Count 264 k/uL (150-450); RBC 4.47 m/uL (4.30-5.90); RDW 12.2 % (11.5-15.5); WBC 6.4 k/uL (3.8-10.6)
[2021-11-28 01:18] LABS: ALT 24 U/L (4-49); AST 43 U/L (17-59); African American GFR (CKD) >90 (>60 ml/min/1.73 sqM); Albumin 4.1 g/dL (3.5-5.0); Alkaline Phosphatase 68 U/L (38-126); Anion Gap 6 mmol/L; Blood Urea Nitrogen 21 mg/dL (9-20); Calcium 8.9 mg/dL (8.4-10.2); Carbon Dioxide 27 mmol/L (22-30); Chloride 105 mmol/L (98-107); Glucose 120 mg/dL (74-99); Non-African American GFR(CKD) 90 (>60 ml/min/1.73 sqM); Potassium 4.6 mmol/L (3.5-5.1); Sodium 138 mmol/L (137-145); Total Bilirubin 0.6 mg/dL (0.2-1.3); Total Protein 6.6 g/dL (6.3-8.2)
== END 2021-11-28 01:39 | disposition left against medical advice (07) ==
LOC: EC 23:12
DX: R07.89 Other chest pain (principal); I10 Essential (primary) hypertension; J45.909 Unspecified asthma, uncomplicated; F17.200 Nicotine dependence, unspecified, uncomplicated; Z88.9 Allergy status to unspecified drugs, medicaments and biological substances
CPT/HCPCS: 36415; 71046; 80053; 84484; 85025; 93005; 99285

== ENCOUNTER → 2022-02-22 | Outpatient (CLI) | payer OTHER ==
--- NOTE | 2022-02-22 09:27 | XR ---
EXAMINATION TYPE: XR knee limited RT DATE OF EXAM: 02/22/2022 COMPARISON: NONE HISTORY: Pain TECHNIQUE: Two views are submitted. FINDINGS: Narrowing of patellofemoral and medial compartment knee joint with hypertrophic spurring. Small amoun t of fluid is. Osseous structures are intact. No acute fracture seen. IMPRESSION: 1. Osteoarthritis with small suprapatellar bursal fluid collection.
== END | disposition home or self-care (01) ==
LOC: RADXRMAIN 08:12
PROVIDERS: ATTEND Nurse Practitioner Family
DX: M25.561 Pain in right knee (principal); R60.0 Localized edema

== ENCOUNTER 2022-03-26 16:37 | Emergency (ER) | payer OTHER ==
[2022-03-26 16:44] VITALS: RESP 18; TEMP 97.4
[2022-03-26] MEDS ORDERED: methylPREDNISolone SOD SUCCI 125 MG/2 ML VIAL IM ONE (16:49)
[2022-03-26] MEDS ORDERED: diphenhydrAMINE 50 MG/ML 1 ML VIAL IM STA (16:49)
[2022-03-26] MEDS ORDERED: FAMOTIDINE 20 MG/2 ML VIAL IV STA (17:01)
[2022-03-26] MEDS ORDERED: SODIUM CHLORIDE 0.9% 1,000 ML IV STA (17:01)
[2022-03-26 17:02] VITALS: BP 134/92; PULSE 80
[2022-03-26] MEDS ORDERED: ALBUTEROL HFA INHALER INHALATION STA (17:02)
[2022-03-26 17:20] LABS: Basophils # (A) 0.1 k/uL (0-0.2); Basophils % (A) 1 %; Eosinophils # (A) 0.4 k/uL (0-0.7); Eosinophils % (A) 6 %; HCT 45.6 % (39.0-53.0); HGB 15.4 gm/dL (13.0-17.5); Lymphocytes % (A) 35 %; MCH 31.4 pg (25.0-35.0); MCHC 33.7 g/dL (31.0-37.0); MCV 93.2 fL (80.0-100.0); Mean Platelet Volume 7.4; Monocytes # (A) 0.3 k/uL (0-1.0); Monocytes % (A) 5 %; Neutrophils # (A) 2.9 k/uL (1.3-7.7); Neutrophils % (A) 50 %; Platelet Count 343 k/uL (150-450); RBC 4.89 m/uL (4.30-5.90); RDW 12.3 % (11.5-15.5); WBC 5.8 k/uL (3.8-10.6)
--- NOTE | 2022-03-26 17:32 | ED ---
Allergic Reaction HPI - General Chief complaint: Allergic Reaction Stated complaint: Allergic reaction Time Seen by Provider: 03/26/22 16:57 Source: patient Mode of arrival: wheelchair Limitations: no limitations - History of Present Illness Initial Comments: Patient is a 41-year-old male presenting with chief complaint of ALLERGIC reaction. Patient states that approximately 10 minutes prior to arrival he began to break out in hives. He states that 20 minutes prior he was eating a twinkie. Otherwise he has had no new foods, started no new medications, used no new products. Patient states that he feels as though his soft palate is swollen. He states he is still able to swallow. He denies any chest pain, shortness of breath, palpitations, weakness, loss of consciousness, seizure, fever, chills, nausea, vomiting, abdominal pain. - Related Data Home Medications Medication Instructions Recorded Confirmed Dextroamphetamine/Amphetamine 20 mg PO DAILY 06/05/15 06/05/15 [Adderall] Hydrocodone/Acetaminophen [[place] 1 each PO BID 06/05/15 06/05/15 10-325] Lisinopril [Prinivil] 10 mg PO DAILY 06/05/15 06/05/15 Previous Rx's Medication Instructions Recorded Albuterol Sulfate [Proair Hfa] 1 - 2 puff INHALATION Q6HR PRN #1 06/05/15 inhaler HYDROcodone/APAP 10-325MG [[place] 1 each PO Q12H PRN #20 tab 06/05/15 10] predniSONE [Deltasone] 20 mg PO BID #10 tab 06/05/15 Pramox-[place] 1-8% Lotion 1 applic TOPICAL QID #1 bottle 06/18/18 [Caladryl] diphenhydrAMINE [Benadryl] 50 mg PO QID PRN #20 capsule 06/18/18 Famotidine [Pepcid] 20 mg PO BID #20 tablet 06/25/18 Permethrin 5% Cream [Elimite] 1 applic TOPICAL ONCE #1 tube 06/25/18 diphenhydrAMINE [Benadryl] 1 - 2 tab PO Q6HR PRN #30 capsule 06/25/18 predniSONE [Deltasone] 40 mg PO DAILY 5 Days tab 06/25/18 HYDROcodone/APAP 5-325MG [[place] 1 tab PO Q6HR PRN 3 Days #12 tab 04/29/19 5-325] Penicillin V Potassium [Pen Vee K] 500 mg PO QID 7 Days #28 tablet 04/29/19 predniSONE 30 mg PO BID #42 tab 05/14/20 valACYclovir HCL [Valacyclovir] 1,000 mg PO Q8H #10 tab 05/14/20 Azithromycin [Zithromax] 1,000 mg PO DAILY 1 Days #2 tab 07/08/20 Cephalexin [Keflex] 500 mg PO Q6H #40 cap 07/08/20 Albuterol Inhaler [Ventolin Hfa 2 puff INHALATION RT-QID PRN #8 gm 03/26/22 Inhaler] EPINEPHrine (Auto Inject) [Epipen] 0.3 mg IM ONCE PRN #1 each 03/26/22 Allergies Allergy/AdvReac Type Severity Reaction Status Date / Time prochlorperazine edisylate Allergy Unknown Verified 11/27/21 23:24 [From Compazine] prochlorperazine maleate Allergy Unknown Verified 11/27/21 23:24 [From Compazine] Review of Systems ROS Statement: Those systems with pertinent positive or pertinent negative responses have been documented in the HPI. ROS Other: All systems not noted in ROS Statement are negative. Past Medical History Past Medical History: Asthma, COPD, Hypertension, Thyroid Disorder History of Any Multi-Drug Resistant Organisms: C-DIFF Date of last positivie culture/infection: 2009 MDRO Source:: stool Past Surgical History: Orthopedic Surgery Additional Past Surgical History / Comment(s): Right arm, left hand, Past Psychological History: ADD/ADHD Smoking Status: Current every day smoker Past Alcohol Use History: None Reported Past Drug Use History: Marijuana, Methamphetamine General Exam Limitations: no limitations General appearance: alert, lethargic (Patient was given Benadryl and feels tired), in distress (His face is clearly swollen and he appears to be in pain) Head exam: Present: atraumatic Eye exam: Present: EOMI, periorbital swelling ENT exam: Present: normal exam, normal oropharynx, mucous membranes moist Neck exam: Present: normal inspection, other (hives on neck) Respiratory exam: Present: wheezes. Absent: respiratory distress, rales, rhonchi, stridor Cardiovascular Exam: Present: regular rate, normal rhythm, normal heart sounds. Absent: systolic murmur, diastolic murmur, rubs, gallop, clicks Extremities exam: Present: normal inspection, full ROM Neurological exam: Present: alert, oriented X3, CN II-XII intact Psychiatric exam: Present: normal affect, normal mood Skin exam: Present: warm, dry, erythema, urticaria Course Vital Signs 03/26/22 03/26/22 16:41 17:00 Temperature 97.4 F L Pulse Rate 97 80 Respiratory 18 18 Rate Blood Pressure 103/56 134/92 O2 Sat by Pulse 99 98 Oximetry Medical Decision Making - Medical Decision Making Patient is a 41-year-old male presenting with chief complaint of ALLERGIC reaction. Patient states that earlier when he was eating a twinkie, approximately 20 minutes later he began to feel some swelling at the roof of his mouth and he broke out in hives. Patient states that this started 10 minutes prior to arrival. Upon arrival he was given Benadryl and Solu-Medrol. On evaluation there diffuse wheezes on auscultation, there is periorbital swelling, urticaria is seen on inspection. Patient was given Pepcid, 1 L normal saline, and albuterol. Chest x-ray was obtained which is unremarkable. CBC and CMP are unremarkable. On reevaluation lungs are clear to auscultation. Patient is resting comfortably. Patient appears stable for discharge with outpatient follow-up at this time. I did provide him with a prescription for an EpiPen and albuterol inhaler. Do not eat Twinkie's. Follow-up with your PCP on Tuesday. Report back to ER if any worsening symptoms. I educated the patient and family on return parameters and alarms symptoms. Answered all questions. Patient c onveyed verbal understanding and agreed to the plan. I discussed this case with my attending Dr. John - Lab Data Result diagrams: 03/26/22 17:07 03/26/22 17:07 Lab Results 03/26/22 03/26/22 Range/Units 17:07 17:07 WBC 5.8 (3.8-10.6) k/uL RBC 4.89 (4.30-5.90) m/uL Hgb 15.4 (13.0-17.5) gm/dL Hct 45.6 (39.0-53.0) % MCV 93.2 (80.0-100.0) fL MCH 31.4 (25.0-35.0) pg MCHC 33.7 (31.0-37.0) g/dL RDW 12.3 (11.5-15.5) % Plt Count 343 (150-450) k/uL MPV 7.4 Neutrophils % 50 % Lymphocytes % 35 % Monocytes % 5 % Eosinophils % 6 % Basophils % 1 % Neutrophils # 2.9 (1.3-7.7) k/uL Lymphocytes # 2.0 (1.0-4.8) k/uL Monocytes # 0.3 (0-1.0) k/uL Eosinophils # 0.4 (0-0.7) k/uL Basophils # 0.1 (0-0.2) k/uL Sodium 138 (137-145) mmol/L Potassium 3.9 (3.5-5.1) mmol/L Chloride 103 (98-107) mmol/L Carbon Dioxide 27 (22-30) mmol/L Anion Gap 8 mmol/L BUN 23 H (9-20) mg/dL Creatinine 1.02 (0.66-1.25) mg/dL Est GFR (CKD-EPI)AfAm >90 (>60 ml/min/1.73 sqM) Est GFR (CKD-EPI)NonAf >90 (>60 ml/min/1.73 sqM) Glucose 122 H (74-99) mg/dL Calcium 9.0 (8.4-10.2) mg/dL Total Bilirubin 0.5 (0.2-1.3) mg/dL AST 26 (17-59) U/L ALT 21 (4-49) U/L Alkaline Phosphatase 80 (38-126) U/L Total Protein 7.0 (6.3-8.2) g/dL Albumin 4.5 (3.5-5.0) g/dL Disposition Clinical Impression: Allergic reaction Disposition: HOME SELF-CARE Condition: Fair Instructions (If sedation given, give patient instructions): Urticaria (ED), Anaphylaxis (ED) Additional Instructions: Take medication as prescribed. Do not continue to eat Twinkie's. Report back to ER if any worsening symptoms. Follow-up with your PCP on Tuesday. Prescriptions: EPINEPHrine (Auto Inject) [Epipen] 0.3 mg IM ONCE PRN #1 each PRN Reason: Anaphylaxis Albuterol Inhaler [Ventolin Hfa Inhaler] 2 puff INHALATION RT-QID PRN #8 gm PRN Reason: Wheezing Is patient prescribed a controlled substance at d/c from ED?: No Referrals: Pastor Rhodes Jr, [Primary Care Provider] - 1-2 days Time of Disposition: 18:43
[2022-03-26 17:40] LABS: ALT 21 U/L (4-49); AST 26 U/L (17-59); African American GFR (CKD) >90 (>60 ml/min/1.73 sqM); Albumin 4.5 g/dL (3.5-5.0); Alkaline Phosphatase 80 U/L (38-126); Anion Gap 8 mmol/L; Blood Urea Nitrogen 23 mg/dL (9-20); Carbon Dioxide 27 mmol/L (22-30); Chloride 103 mmol/L (98-107); Glucose 122 mg/dL (74-99); Non-African American GFR(CKD) >90 (>60 ml/min/1.73 sqM); Potassium 3.9 mmol/L (3.5-5.1); Sodium 138 mmol/L (137-145); Total Bilirubin 0.5 mg/dL (0.2-1.3)
--- NOTE | 2022-03-26 17:44 | XR ---
EXAMINATION TYPE: XR chest 2V DATE OF EXAM: 03/26/2022 COMPARISON: 11/28/2021 HISTORY: Wheezing allergic reaction TECHNIQUE: 2 views FINDINGS: Heart and mediastinum are normal. Lungs are clear. Diaphragm is normal. Bony thorax is inta ct. IMPRESSION: Normal chest. No change.
== END 2022-03-26 19:04 | disposition home or self-care (01) ==
LOC: EC 16:37
DX: T78.40XA Allergy, unspecified, initial encounter (principal); J44.9 Chronic obstructive pulmonary disease, unspecified; I10 Essential (primary) hypertension; F17.200 Nicotine dependence, unspecified, uncomplicated; Z88.9 Allergy status to unspecified drugs, medicaments and biological substances
CPT/HCPCS: 36415; 94640; 80053; 85025; 71046; 99284; 96374; 96372; 96361; J1200; J2930

== ENCOUNTER 2022-09-12 06:01 | Emergency (ER) | payer OTHER ==
[2022-09-12] MEDS ORDERED: methylPREDNISolone SOD SUCCI 125 MG/2 ML VIAL IV STA (06:17)
[2022-09-12] MEDS ORDERED: SODIUM CHLORIDE 0.9% 1,000 ML IV STA (06:17)
[2022-09-12 06:27] LABS: Basophils # (A) 0.1 k/uL (0-0.2); Basophils % (A) 1 %; Eosinophils # (A) 0.8 k/uL (0-0.7); Eosinophils % (A) 15 %; HCT 44.1 % (39.0-53.0); HGB 15.1 gm/dL (13.0-17.5); Lymphocytes % (A) 37 %; MCH 31.8 pg (25.0-35.0); MCHC 34.3 g/dL (31.0-37.0); MCV 92.7 fL (80.0-100.0); Monocytes # (A) 0.3 k/uL (0-1.0); Monocytes % (A) 6 %; Neutrophils # (A) 2.1 k/uL (1.3-7.7); Neutrophils % (A) 40 %; Platelet Count 317 k/uL (150-450); RBC 4.76 m/uL (4.30-5.90); RDW 12.6 % (11.5-15.5); WBC 5.3 k/uL (3.8-10.6)
[2022-09-12 06:42] LABS: ALT 20 U/L (4-49); AST 25 U/L (17-59); African American GFR (CKD) >90 (>60 ml/min/1.73 sqM); Albumin 4.3 g/dL (3.5-5.0); Alkaline Phosphatase 82 U/L (38-126); Anion Gap 11 mmol/L; Blood Urea Nitrogen 21 mg/dL (9-20); Calcium 8.7 mg/dL (8.4-10.2); Carbon Dioxide 26 mmol/L (22-30); Chloride 104 mmol/L (98-107); Glucose 79 mg/dL (74-99); Magnesium 2.1 mg/dL (1.6-2.3); Non-African American GFR(CKD) 80 (>60 ml/min/1.73 sqM); Potassium 3.7 mmol/L (3.5-5.1); Sodium 141 mmol/L (137-145); Total Bilirubin 0.4 mg/dL (0.2-1.3); Total Protein 6.7 g/dL (6.3-8.2)
--- NOTE | 2022-09-12 06:48 | XR ---
EXAMINATION TYPE: XR chest 2V DATE OF EXAM: 09/12/2022 COMPARISON: 03/26/2022 HISTORY: Short of breath TECHNIQUE: 2 views FINDINGS: There is no heart failure nor confluent pneumonic infiltrate. Costophrenic angles are clear . There are no hilar masses. Bony thorax is intact. There is old healed fracture left clavicle. IMPRESSION: No active cardiopulmonary disease. No change.
[2022-09-12 06:54] LABS: Partial Thromboplastin Time 23.6 sec (22.0-30.0); Prothrombin Time 10.8 sec (9.0-12.0)
[2022-09-12] MEDS ORDERED: IPRATROPIUM-ALBUTEROL 3 ML NEB INHALATION STA (06:59)
--- NOTE | 2022-09-12 07:01 | ED ---
SOB HPI - General Chief Complaint: Shortness of Breath Stated Complaint: Shortness of Breath Time Seen by Provider: 09/12/22 06:03 Source: patient, EMS, RN notes reviewed Mode of arrival: EMS Limitations: no limitations - History of Present Illness Initial Comments: 41-year-old male presents emergency Department chief complaint of shortness breath. Patient states his underlying asthma states she's been having increasing difficulty with asthma. 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 Patient states she also daily smoker. Patient states been using his inhaler more frequent than usual. Patient was unrestricted and buttocks for dental infection and states when he stopped antibiotics congestion seemed to start. Reported fever no chills no night sweats. Denies any abdominal pain. - Related Data Home Medications Medication Instructions Recorded Confirmed Dextroamphetamine/Amphetamine 20 mg PO DAILY 06/05/15 06/05/15 [Adderall] Hydrocodone/Acetaminophen [[place] 1 each PO BID 06/05/15 06/05/15 10-325] lisinopriL [Prinivil] 10 mg PO DAILY 06/05/15 06/05/15 Previous Rx's Medication Instructions Recorded Albuterol Sulfate [Proair Hfa] 1 - 2 puff INHALATION Q6HR PRN #1 06/05/15 inhaler HYDROcodone/APAP 10-325MG [[place] 1 each PO Q12H PRN #20 tab 06/05/15 10] predniSONE [Deltasone] 20 mg PO BID #10 tab 06/05/15 Pramox-Calamine 1-8% Lotion 1 applic TOPICAL QID #1 bottle 06/18/18 [Caladryl] diphenhydrAMINE [Benadryl] 50 mg PO QID PRN #20 capsule 06/18/18 Famotidine [Pepcid] 20 mg PO BID #20 tablet 06/25/18 Permethrin 5% Cream [Elimite] 1 applic TOPICAL ONCE #1 tube 06/25/18 diphenhydrAMINE [Benadryl] 1 - 2 tab PO Q6HR PRN #30 capsule 06/25/18 predniSONE [Deltasone] 40 mg PO DAILY 5 Days tab 06/25/18 HYDROcodone/APAP 5-325MG [[place] 1 tab PO Q6HR PRN 3 Days #12 tab 04/29/19 5-325] Penicillin V Potassium [Pen Vee K] 500 mg PO QID 7 Days #28 tablet 04/29/19 predniSONE 30 mg PO BID #42 tab 05/14/20 valACYclovir HCL [Valacyclovir] 1,000 mg PO Q8H #10 tab 05/14/20 Azithromycin [Zithromax] 1,000 mg PO DAILY 1 Days #2 tab 07/08/20 Cephalexin [Keflex] 500 mg PO Q6H #40 cap 07/08/20 Albuterol Inhaler [Ventolin Hfa 2 puff INHALATION RT-QID PRN #8 gm 03/26/22 Inhaler] EPINEPHrine (Auto Inject) [Epipen] 0.3 mg IM ONCE PRN #1 each 03/26/22 Azithromycin [Zithromax Z Pack] 0 tab PO DIRECTED #6 tab 09/12/22 Ipratropium-Albuterol Nebulize 3 ml INHALATION QID #50 each 09/12/22 [Duoneb 0.5 mg-3 mg/3 ml Soln] predniSONE 50 mg PO DAILY #5 tab 09/12/22 Allergies Allergy/AdvReac Type Severity Reaction Status Date / Time prochlorperazine edisylate Allergy Unknown Verified 11/27/21 23:24 [From Compazine] prochlorperazine maleate Allergy Unknown Verified 11/27/21 23:24 [From Compazine] Review of Systems ROS Statement: Those systems with pertinent positive or pertinent negative responses have been documented in the HPI. ROS Other: All systems not noted in ROS Statement are negative. Past Medical History Past Medical History: Asthma, COPD, Hypertension, Thyroid Disorder History of Any Multi-Drug Resistant Organisms: C-DIFF Date of last positivie culture/infection: 2009 MDRO Source:: stool Past Surgical History: Orthopedic Surgery Additional Past Surgical History / Comment(s): Right arm, left hand, Past Psychological History: ADD/ADHD Smoking Status: Current every day smoker Past Alcohol Use History: None Reported Past Drug Use History: Marijuana, Methamphetamine General Exam Limitations: no limitations General appearance: alert, in no apparent distress Head exam: Present: atraumatic, normocephalic, normal inspection Eye exam: Present: normal appearance, PERRL, EOMI. Absent: scleral icterus, conjunctival injection, periorbital swelling ENT exam: Present: normal exam, normal oropharynx, mucous membranes moist Neck exam: Present: normal inspection. Absent: tenderness, meningismus, lymphadenopathy Respiratory exam: Present: wheezes. Absent: normal lung sounds bilaterally, respiratory distress, rales, rhonchi, stridor Cardiovascular Exam: Present: regular rate, normal rhythm, normal heart sounds. Absent: systolic murmur, diastolic murmur, rubs, gallop, clicks GI/Abdominal exam: Present: soft, normal bowel sounds. Absent: distended, tenderness, guarding, rebound, rigid Course Vital Signs 09/12/22 09/12/22 09/12/22 06:03 07:39 07:52 Temperature 97.4 F L Pulse Rate 87 84 82 Respiratory 20 Rate Blood Pressure 140/104 O2 Sat by Pulse 99 Oximetry Medical Decision Making - Medical Decision Making 41-year-old presented for shortness of breath. Patient has acute asthma exacerbation and asthmatic bronchitis. Patient feels improved after treatments, IV steroids. Patient is stable for discharge return parameters were discussed. We discussed smoking cessation.I counseled the patient for smoking cessation for greater than 3 minutes - Lab Data Result diagrams: 09/12/22 06:18 09/12/22 06:18 Lab Results 09/12/22 09/12/22 09/12/22 Range/Units 06:18 06:18 06:18 WBC 5.3 (3.8-10.6) k/uL RBC 4.76 (4.30-5.90) m/uL Hgb 15.1 (13.0-17.5) gm/dL Hct 44.1 (39.0-53.0) % MCV 92.7 (80.0-100.0) fL MCH 31.8 (25.0-35.0) pg MCHC 34.3 (31.0-37.0) g/dL RDW 12.6 (11.5-15.5) % Plt Count 317 (150-450) k/uL MPV 7.0 Neutrophils % 40 % Lymphocytes % 37 % Monocytes % 6 % Eosinophils % 15 % Basophils % 1 % Neutrophils # 2.1 (1.3-7.7) k/uL Lymphocytes # 2.0 (1.0-4.8) k/uL Monocytes # 0.3 (0-1.0) k/uL Eosinophils # 0.8 H (0-0.7) k/uL Basophils # 0.1 (0-0.2) k/uL PT 10.8 (9.0-12.0) sec INR 1.0 (<1.2) APTT 23.6 (22.0-30.0) sec D-Dimer 0.29 (<0.60) mg/L FEU Sodium 141 (137-145) mmol/L Potassium 3.7 (3.5-5.1) mmol/L Chloride 104 (98-107) mmol/L Carbon Dioxide 26 (22-30) mmol/L Anion Gap 11 mmol/L BUN 21 H (9-20) mg/dL Creatinine 1.16 (0.66-1.25) mg/dL Est GFR (CKD-EPI)AfAm >90 (>60 ml/min/1.73 sqM) Est GFR (CKD-EPI)NonAf 80 (>60 ml/min/1.73 sqM) Glucose 79 (74-99) mg/dL Calcium 8.7 (8.4-10.2) mg/dL Magnesium 2.1 (1.6-2.3) mg/dL Total Bilirubin 0.4 (0.2-1.3) mg/dL AST 25 (17-59) U/L ALT 20 (4-49) U/L Alkaline Phosphatase 82 (38-126) U/L Troponin I (0.000-0.034) ng/mL Total Protein 6.7 (6.3-8.2) g/dL Albumin 4.3 (3.5-5.0) g/dL 09/12/22 Range/Units 06:18 WBC (3.8-10.6) k/uL RBC (4.30-5.90) m/uL Hgb (13.0-17.5) gm/dL Hct (39.0-53.0) % MCV (80.0-100.0) fL MCH (25.0-35.0) pg MCHC (31.0-37.0) g/dL RDW (11.5-15.5) % Plt Count (150-450) k/uL MPV Neutrophils % % Lymphocytes % % Monocytes % % Eosinophils % % Basophils % % Neutrophils # (1.3-7.7) k/uL Lymphocytes # (1.0-4.8) k/uL Monocytes # (0-1.0) k/uL Eosinophils # (0-0.7) k/uL Basophils # (0-0.2) k/uL PT (9.0-12.0) sec INR (<1.2) APTT (22.0-30.0) sec D-Dimer (<0.60) mg/L FEU Sodium (137-145) mmol/L Potassium (3.5-5.1) mmol/L Chloride (98-107) mmol/L Carbon Dioxide (22-30) mmol/L Anion Gap mmol/L BUN (9-20) mg/dL Creatinine (0.66-1.25) mg/dL Est GFR (CKD-EPI)AfAm (>60 ml/min/1.73 sqM) Est GFR (CKD-EPI)NonAf (>60 ml/min/1.73 sqM) Glucose (74-99) mg/dL Calcium (8.4-10.2) mg/dL Magnesium (1.6-2.3) mg/dL Total Bilirubin (0.2-1.3) mg/dL AST (17-59) U/L ALT (4-49) U/L Alkaline Phosphatase (38-126) U/L Troponin I <0.012 (0.000-0.034) ng/mL Total Protein (6.3-8.2) g/dL Albumin (3.5-5.0) g/dL - EKG Data -: EKG Interpreted by Sc EKG Comments: EKG performed at 6:24 sinus rhythm with a rate of 82 IL 172 QRS 106 QT/QTC 365/403 Disposition Clinical Impression: Asthmatic bronchitis, Asthma exacerbation Disposition: HOME SELF-CARE Condition: Stable Instructions (If sedation given, give patient instructions): Asthma (ED), Acute Bronchitis (ED) Additional Instructions: Please return to the Emergency Department if symptoms worsen or any other con cerns. Prescriptions: Ipratropium-Albuterol Nebulize [Duoneb 0.5 mg-3 mg/3 ml Soln] 3 ml INHALATION QID #50 each predniSONE 50 mg PO DAILY #5 tab Azithromycin [Zithromax Z Pack] 0 tab PO DIRECTED #6 tab Is patient prescribed a controlled substance at d/c from ED?: No Referrals: None,Stated [Primary Care Provider] - 1-2 days Time of Disposition: 08:18
[2022-09-12 08:27] VITALS: BP 142/78; PULSE 90; RESP 18; TEMP 98
== END 2022-09-12 08:28 | disposition home or self-care (01) ==
LOC: EC 06:01
DX: J45.901 Unspecified asthma with (acute) exacerbation (principal); I10 Essential (primary) hypertension; E03.9 Hypothyroidism, unspecified; F90.9 Attention-deficit hyperactivity disorder, unspecified type; F17.200 Nicotine dependence, unspecified, uncomplicated; F12.90 Cannabis use, unspecified, uncomplicated; F15.10 Other stimulant abuse, uncomplicated; Z79.51 Long term (current) use of inhaled steroids; Z79.899 Other long term (current) drug therapy; Z79.811 Long term (current) use of aromatase inhibitors
CPT/HCPCS: 36415; 94640; 93005; 85379; 80053; 83735; 84484; 85025; 85610; 85730; 71046; 99285; 96374; 96361; J2930; 99284

== ENCOUNTER 2023-05-26 18:49 | Emergency (ER) | payer OTHER ==
[2023-05-26 18:57] VITALS: BP 146/97; PULSE 89; RESP 24; TEMP 98
[2023-05-26 19:51] LABS: Basophils % (A) 1 %; Eosinophils # (A) 0.2 k/uL (0-0.7); Eosinophils % (A) 3 %; HCT 39.8 % (39.0-53.0); HGB 13.4 gm/dL (13.0-17.5); Lymphocytes # (A) 0.6 k/uL (1.0-4.8); Lymphocytes % (A) 13 %; MCH 31.2 pg (25.0-35.0); MCHC 33.5 g/dL (31.0-37.0); MCV 92.9 fL (80.0-100.0); Mean Platelet Volume 7.5; Monocytes # (A) 0.3 k/uL (0-1.0); Monocytes % (A) 6 %; Neutrophils # (A) 3.6 k/uL (1.3-7.7); Neutrophils % (A) 77 %; Platelet Count 117 k/uL (150-450); RBC 4.29 m/uL (4.30-5.90); RDW 12.4 % (11.5-15.5); WBC 4.7 k/uL (3.8-10.6)
[2023-05-26 20:12] LABS: Prothrombin Time 10.1 sec (9.0-12.0)
[2023-05-26 20:29] LABS: Partial Thromboplastin Time 21.8 sec (22.0-30.0)
--- NOTE | 2023-05-26 20:54 | XR ---
EXAMINATION: XR chest 2V: 05/26/2023 7:51 PM CLINICAL INDICATION: Chest Pain TECHNIQUE: Departmental protocol COMPARISON: 09/12/2022 FINDINGS: There are bilateral infrahilar radiating opacities, likely prominent pulmonary vasculature rather jesse n developing bibasilar peribronchial infiltrates. Lungs are otherwise unremarkable. The pleural spaces are negative. EKG leads. The cardiac silhouette is not enlarged. The remainder of the mediastinal silhouette is unr emarkable. The skeletal structures and soft tissues are negative for acute findings. IMPRESSION: No definite acute radiographic process. Six-week follow-up full inspiration PA and lateral chest radi ograph can reduce to ensure resolution of the findings.
[2023-05-26 21:55] LABS: ALT 19 U/L (4-49); AST 30 U/L (17-59); African American GFR (CKD) >90 (>60 ml/min/1.73 sqM); Albumin 4.1 g/dL (3.5-5.0); Alkaline Phosphatase 70 U/L (38-126); Anion Gap 10 mmol/L; Blood Urea Nitrogen 20 mg/dL (9-20); Calcium 8.4 mg/dL (8.4-10.2); Carbon Dioxide 23 mmol/L (22-30); Chloride 105 mmol/L (98-107); Glucose 95 mg/dL (74-99); Magnesium 2.1 mg/dL (1.6-2.3); Non-African American GFR(CKD) >90 (>60 ml/min/1.73 sqM); Potassium 3.9 mmol/L (3.5-5.1); Sodium 138 mmol/L (137-145); Total Bilirubin 0.7 mg/dL (0.2-1.3); Total Protein 6.8 g/dL (6.3-8.2)
--- NOTE | 2023-05-26 22:58 | ED ---
Chest Pain HPI - General Chief Complaint: Chest Pain Stated Complaint: Chest Pain Time Seen by Provider: 05/26/23 19:40 Source: patient, EMS Mode of arrival: EMS - History of Present Illness Initial Comments: This 42-year-old male presents with a complaint of some chest pain. He states that it is more in his left chest and described as a pressure. He states that it radiates down his left arm. Symptoms just started over the last couple of days. He has occasional shortness of breath as well. He denies any known cardiac history himself but apparently does have a strong family history of cardiac disease. He has never had a stress test or heart catheterization. There is no leg pain or swelling. He does state that he is prone to blood clots and had one in his arm previously. The apparently does have a history of methamphetamine and other substance abuse. He does also relate that he had problems with his thyroid and the past and has been noncompliant with his med ications. He denies any fevers or chills. There is no cough. No other complaints or modifying factors. - Related Data Home Medications Medication Instructions Recorded Confirmed Dextroamphetamine/Amphetamine 20 mg PO DAILY 06/05/15 06/05/15 [Adderall] Hydrocodone/Acetaminophen [[place] 1 each PO BID 06/05/15 06/05/15 10-325] lisinopriL [Prinivil] 10 mg PO DAILY 06/05/15 06/05/15 Previous Rx's Medication Instructions Recorded Albuterol Sulfate [Proair Hfa] 1 - 2 puff INHALATION Q6HR PRN #1 06/05/15 inhaler HYDROcodone/APAP 10-325MG [[place] 1 each PO Q12H PRN #20 tab 06/05/15 10] predniSONE [Deltasone] 20 mg PO BID #10 tab 06/05/15 Pramox-Calamine 1-8% Lotion 1 applic TOPICAL QID #1 bottle 06/18/18 [Caladryl] diphenhydrAMINE [Benadryl] 50 mg PO QID PRN #20 capsule 06/18/18 Famotidine [Pepcid] 20 mg PO BID #20 tablet 06/25/18 Permethrin 5% Cream [Elimite] 1 applic TOPICAL ONCE #1 tube 06/25/18 diphenhydrAMINE [Benadryl] 1 - 2 tab PO Q6HR PRN #30 capsule 06/25/18 predniSONE [Deltasone] 40 mg PO DAILY 5 Days tab 06/25/18 HYDROcodone/APAP 5-325MG [[place] 1 tab PO Q6HR PRN 3 Days #12 tab 04/29/19 5-325] Penicillin V Potassium [Pen Vee K] 500 mg PO QID 7 Days #28 tablet 04/29/19 predniSONE 30 mg PO BID #42 tab 05/14/20 valACYclovir HCL [Valacyclovir] 1,000 mg PO Q8H #10 tab 05/14/20 Azithromycin [Zithromax] 1,000 mg PO DAILY 1 Days #2 tab 07/08/20 Cephalexin [Keflex] 500 mg PO Q6H #40 cap 07/08/20 Albuterol Inhaler [Ventolin Hfa 2 puff INHALATION RT-QID PRN #8 gm 03/26/22 Inhaler] EPINEPHrine (Auto Inject) [Epipen] 0.3 mg IM ONCE PRN #1 each 03/26/22 Azithromycin [Zithromax Z Pack] 0 tab PO DIRECTED #6 tab 09/12/22 Ipratropium-Albuterol Nebulize 3 ml INHALATION QID #50 each 09/12/22 [Duoneb 0.5 mg-3 mg/3 ml Soln] predniSONE 50 mg PO DAILY #5 tab 09/12/22 Allergies Allergy/AdvReac Type Severity Reaction Status Date / Time prochlorperazine edisylate Allergy Unknown Verified 11/27/21 23:24 [From Compazine] prochlorperazine maleate Allergy Unknown Verified 11/27/21 23:24 [From Compazine] Review of Systems ROS Statement: Those systems with pertinent positive or pertinent negative responses have been documented in the HPI. ROS Other: All systems not noted in ROS Statement are negative. Past Medical History Past Medical History: Asthma, COPD, Hypertension, Thyroid Disorder History of Any Multi-Drug Resistant Organisms: C-DIFF Date of last positivie culture/infection: 2009 MDRO Source:: stool Past Surgical History: Orthopedic Surgery Additional Past Surgical History / Comment(s): Right arm, left hand, Past Psychological History: ADD/ADHD Smoking Status: Current every day smoker Past Alcohol Use History: None Reported Past Drug Use History: Marijuana, Methamphetamine General Exam - General Exam Comments Initial Comments: GENERAL: The patient is well nourished and well hydrated. VITAL SIGNS: Heart rate, blood pressure, respiratory rate reviewed as recorded in nurse's notes. EYES: Pupils are round and reactive. Extraocular movements are intact. No conjunctival / lid redness or swelling. ENT: No external evidence of injury, swelling, or ecchymosis. Airway is patent. Throat is clear. NECK: Nontender. No swelling or evidence of injury. No subcutaneous emphysema. T rachea is midline. No thyroid mass. HEART: Regular rate and rhythm. Good peripheral pulses. LUNGS/CHEST: Breath sounds clear and equal bilaterally. No rales, rhonchi, or wheezes. No ecchymosis, subcutaneous emphysema, or tenderness. ABDOMEN: Abdomen soft without tenderness. No palpable masses or organomegaly. No peritoneal signs. No abdominal wall swelling or ecchymosis. EXTREMITIES: No extremity tenderness. Normal muscle tone and function. No thoracolumbar tenderness. NEUROLOGIC: Sensation is grossly intact. Cranial nerve exam reveals face is symmetrical, tongue is midline, speech is clear. SKIN: No abrasions or ecchymosis is noted. No induration or masses noted. PSYCHIATRIC: Alert and oriented. Appropriate behavior and judgment. Course Vital Signs 05/26/23 18:50 Temperature 98 F Pulse Rate 89 Respiratory 24 Rate Blood Pressure 146/97 O2 Sat by Pulse 98 Oximetry Chest Pain MDM - MDM The patient was seen and examined. All diagnostics were reviewed. The EKG was done and shows a normal sinus rhythm at a rate of 90. There is no acute ST or T wave changes noted per my interpretation. The patient is placed on a bus driver/monitor no ectopy is identified. The chest x-ray does not show any acute processes noted per my interpretation. The laboratory does show elevation of his TSH consistent with hypothyroidism and likely related to his noncompliance. His d-dimer is elevated and a CT angiogram of the chest is ordered. The patient apparently eloped from the emergency department. I was later told that he stomped out for some reason. Final disposition is not completed as patient eloped from the emergency department. Was pt. sent in by a medical professional or institution (, PA, CORPORATE QUALITY ASSURANCE MANAGER, urgent care, hospital, or halfway...) When possible be specific @ -[No] Did you speak to anyone other than the patient for history (EMS, parent, family, police, friend...)? What history was obtained from this source @ -The patient's mother is present and does help with the history. Did you review nursing and triage notes (agree or disagree)? Why? @ -[I reviewed and agree with nursing and triage notes] Were old charts reviewed (outside hosp., previous admission, EMS record, old EKG, old radiological studies, urgent care reports/EKG's, halfway records)? Report findings @ -Old charts were reviewed Differential Diagnosis (chest pain, altered mental status, abdominal pain women, abdominal pain men, vaginal bleeding, weakness, fever, dyspnea, syncope, headache, dizziness, GI bleed, back pain, seizure, CVA, palpatations, mental health, musculoskeletal)? @ -Pulmonary embolism, acute coronary syndrome, aortic dissection, pneumonia EKG interpreted by me (3pts min.). @ -[As above] X-rays interpreted by me (1pt min.). @ -Interpreted by myself CT interpreted by me (1pt min.). @ -[None done] U/S interpreted by me (1pt. min.). @ -[None done] What testing was considered but not performed or refused? (CT, X-rays, U/S, labs)? Why? @ -Patient was going to have a CT angiogram of the chest but left prior to completion of this test. What meds were considered but not given or refused? Why? @ -[None] Did you discuss the management of the patient with other professionals (professionals i.e. , PA, CORPORATE QUALITY ASSURANCE MANAGER, lab, RT, psych nurse, social work case manager, automobile club membership sales agent, teacher, fire officer, case reviewer)? Give summary @ -[No] Was smoking cessation discussed for >3mins.? @ -[No] Was critical care preformed (if so, how long)? @ -[No] Were there social determinants of health that impacted care today? How? (Homelessness, low income, unemployed, alcoholism, drug addiction, transportation, low edu. Level, literacy, decrease access to med. care, custodial, rehab)? @ -Substance abuse, methamphetamines in particular Was there de-escalation of care discussed even if they declined (Discuss DNR or withdrawal of care, Hospice)? DNR status @ -[No] What co-morbidities impacted this encounter? (DM, HTN, Smoking, COPD, CAD, Cancer, CVA, ARF, Chemo, Hep., AIDS, mental health diagnosis, sleep apnea, morbid obesity)? @ -Substance abuse, hypothyroidism Was patient admitted / discharged? Hospital course, mention meds given and route, prescriptions, significant lab abnormalities, going to OR and other pertinent info. @ -Patient eloped from the emergency department. Undiagnosed new problem with uncertain prognosis? @ -[No] Drug Therapy requiring intensive monitoring for toxicity (Heparin, Nitro, Insulin, Cardizem)? @ -[No] Were any procedures done? @ -[No] Diagnosis/symptom? @ -Chest pain, dyspnea, hypothyroidism, possible pulmonary embolism, possible acute coronary syndrome Acute, or Chronic, or Acute on Chronic? @ -Acute Uncomplicated (without systemic symptoms) or Complicated (systemic symptoms)? @ -Uncomplicated Side effects of treatment? @ -[No] Exacerbation, Progression, or Severe Exacerbation? @ -[No] Poses a threat to life or bodily function? How? (Chest pain, [place], DC, pneumonia, PE, COPD, DKA, ARF, appy, cholecystitis, CVA, Diverticulitis, Homicidal, Suicidal, threat to staff... and all critical care pts) @ -Yes, if patient had acute coronary syndrome or pulmonary embolisms and this potentially could be life-threatening. Disposition Clinical Impression: Chest pain, Dyspnea, Substance abuse, Hypothyroidism, Noncompliance with medication regimen, Elevated d-dimer Disposition: LEFT AGAINST MEDICAL ADVICE Condition: Fair Instructions (If sedation given, give patient instructions): Chest Pain (ED) Is patient prescribed a controlled substance at d/c from ED?: No Referrals: None,Stated [Primary Care Provider] - 1-2 days Time of Disposition: 10:00
== END 2023-05-26 21:35 | disposition left against medical advice (07) ==
LOC: EC 18:49
DX: R07.89 Other chest pain (principal); R06.00 Dyspnea, unspecified; E03.9 Hypothyroidism, unspecified; F15.10 Other stimulant abuse, uncomplicated; R79.1 Abnormal coagulation profile; I10 Essential (primary) hypertension; J44.9 Chronic obstructive pulmonary disease, unspecified; F17.200 Nicotine dependence, unspecified, uncomplicated; F12.90 Cannabis use, unspecified, uncomplicated; Z91.198 Patient's noncompliance with other medical treatment and regimen for other reason; Z79.899 Other long term (current) drug therapy; Z88.8 Allergy status to other drugs, medicaments and biological substances
CPT/HCPCS: 36415; 71046; 80053; 83735; 84439; 84443; 84484; 85025; 85379; 85610; 85730; 93005; 99285

== ENCOUNTER 2024-08-28 14:31 | Emergency (ER) | payer OTHER ==
--- NOTE | 2024-08-28 15:05 | ED ---
ENT HPI - General Chief complaint: Dental/Oral Stated complaint: Dental issue Time Seen by Provider: 08/28/24 14:51 Source: patient, RN notes reviewed Mode of arrival: ambulatory Limitations: no limitations - History of Present Illness Initial comments: This is a 43-year-old male who presents to the emergency department for dental pain. Patient reports left-sided dental pain starting yesterday. He also started to noticed swelling to the left side of his face, particularly from the tooth in the left upper jaw. Denies any fevers or chills. Not taking anything for his pain. Unable to get into a dentist for about a month. Denies any history of dental abscesses. MD complaint: tooth pain - Related Data Home Medications Medication Instructions Recorded Confirmed Dextroamphetamine/Amphetamine 20 mg PO DAILY 06/05/15 06/05/15 [Adderall] Hydrocodone/Acetaminophen [[place] 1 each PO BID 06/05/15 06/05/15 10-325] lisinopriL [Prinivil] 10 mg PO DAILY 06/05/15 06/05/15 Previous Rx's Medication Instructions Recorded Albuterol Sulfate [Proair Hfa] 1 - 2 puff INHALATION Q6HR PRN #1 06/05/15 inhaler HYDROcodone/APAP 10-325MG [[place] 1 each PO Q12H PRN #20 tab 06/05/15 10] predniSONE [Deltasone] 20 mg PO BID #10 tab 06/05/15 Pramox-Calamine 1-8% Lotion 1 applic TOPICAL QID #1 bottle 06/18/18 [Caladryl] diphenhydrAMINE [Benadryl] 50 mg PO QID PRN #20 capsule 06/18/18 Famotidine [Pepcid] 20 mg PO BID #20 tablet 06/25/18 Permethrin 5% Cream [Elimite] 1 applic TOPICAL ONCE #1 tube 06/25/18 diphenhydrAMINE [Benadryl] 1 - 2 tab PO Q6HR PRN #30 capsule 06/25/18 predniSONE [Deltasone] 40 mg PO DAILY 5 Days tab 06/25/18 HYDROcodone/APAP 5-325MG [[place] 1 tab PO Q6HR PRN 3 Days #12 tab 04/29/19 5-325] Penicillin V Potassium [Pen Vee K] 500 mg PO QID 7 Days #28 tablet 04/29/19 predniSONE 30 mg PO BID #42 tab 05/14/20 valACYclovir HCL [Valacyclovir] 1,000 mg PO Q8H #10 tab 05/14/20 Azithromycin [Zithromax] 1,000 mg PO DAILY 1 Days #2 tab 07/08/20 Cephalexin [Keflex] 500 mg PO Q6H #40 cap 07/08/20 Albuterol Inhaler [Ventolin Hfa 2 puff INHALATION RT-QID PRN #8 gm 03/26/22 Inhaler] EPINEPHrine (Auto Inject) [Epipen] 0.3 mg IM ONCE PRN #1 each 03/26/22 Azithromycin [Zithromax Z Pack] 0 tab PO DIRECTED #6 tab 09/12/22 Ipratropium-Albuterol Nebulize 3 ml INHALATION QID #50 each 09/12/22 [Duoneb 0.5 mg-3 mg/3 ml Soln] predniSONE 50 mg PO DAILY #5 tab 09/12/22 Amoxic-Pot Clav 875-125Mg 1 tab PO Q12HR 10 Days #20 tab 08/28/24 [Augmentin 875-125] Ibuprofen [Motrin] 800 mg PO Q8H PRN #30 tab 08/28/24 Allergies Allergy/AdvReac Type Severity Reaction Status Date / Time prochlorperazine edisylate Allergy Unknown Verified 08/28/24 14:50 [From Compazine] prochlorperazine maleate Allergy Unknown Verified 08/28/24 14:50 [From Compazine] Review of Systems ROS Statement: Those systems with pertinent positive or pertinent negative responses have been documented in the HPI. ROS Other: All systems not noted in ROS Statement are negative. Past Medical History Past Medical History: Asthma, COPD, Hypertension, Thyroid Disorder History of Any Multi-Drug Resistant Organisms: C-DIFF Date of last positivie culture/infection: 2009 MDRO Source:: stool Past Surgical History: Orthopedic Surgery Additional Past Surgical History / Comment(s): Right arm, left hand, Past Psychological History: ADD/ADHD Smoking Status: Current every day smoker Past Alcohol Use History: None Reported Past Drug Use History: Marijuana, Methamphetamine General Exam Limitations: no limitations General appearance: alert, in no apparent distress Head exam: Present: atraumatic, normocephalic, normal inspection ENT exam: Present: other (Multiple dental caries and swelling to the left side of the face consistent with a dental abscess) Respiratory exam: Present: normal lung sounds bilaterally. Absent: respiratory distress, wheezes, rales, rhonchi, stridor Cardiovascular Exam: Present: regular rate, normal rhythm, normal heart sounds. Absent: systolic murmur, diastolic murmur, rubs, gallop, clicks Neurological exam: Present: alert, oriented X3, CN II-XII intact Psychiatric exam: Present: normal affect, normal mood Skin exam: Present: warm, dry, intact, normal color. Absent: rash Course Vital Signs 08/28/24 08/28/24 14:42 15:18 Temperature 97.3 F L 98.1 F Pulse Rate 80 75 Respiratory 22 18 Rate Blood Pressure 150/99 145/89 O2 Sat by Pulse 96 98 Oximetry Medical Decision Making - Medical Decision Making This is a 43-year-old male who presents to the emergency department for dental pain. Was pt. sent in by a medical professional or institution? @ -No Did you speak to anyone other than the patient for history? @ -No Did you review nursing and triage notes? @ -Yes, and I agree, it is accurate with regards to the patient's symptoms. Were old charts reviewed? @ -No Differential Diagnosis? @ -Differential Dental Pain: Dental abscess, chipped tooth, dental carries, maximiliano's angina, trigeminal neuralgia, this is not meant to be an all-inclusive list. EKG interpreted by me (3pts min.)? @ -Not obtained X-rays interpreted by me (1pt min.)? @ -Not obtained CT interpreted by me (1pt min.)? @ -Not obtained U/S interpreted by me (1pt. min.)? @ -Not obtained What testing was considered but not performed? (CT, X-rays, U/S, labs)? Why? @ -None What meds were considered but not given? Why? @ -None Did you discuss the management of the patient with other professionals? @ -No Did you reconcile home meds? @ -No Was smoking cessation discussed for >3mins.? @ -I discussed smoking cessation for greater than 3 minutes. The risk of smoking were discussed with the patient including but not limited to risks of cancer, stroke, coronary artery disease and COPD. Also discussed with patient were multiple methods of quitting smoking. Lastly we discussed the financial cost of smoking. Was critical care preformed (if so, how long)? @ -No Were there social determinants of health that impacted care today? How? (Homelessness, low income, unemployed, alcoholism, drug addiction, transportation, low edu. Level, literacy, decrease access to med. care, usp, rehab)? @ -No Was there de-escalation of care discussed even if they declined? (Discuss DNR or withdrawal of care, Hospice)? @ -No What co-morbidities impacted this encounter? (DM, HTN, Smoking, COPD, CAD, Cancer, CVA, Hep., AIDS, mental health diagnosis, sleep apnea, morbid obesity)? @ -Smoking, methamphetamine abuse Was patient admitted / discharged? @ -Discharged. Physical examination consistent with a dental abscess. He had no elevation of the tongue or swelling to the floor of the mouth to suggest Maximiliano's angina. Pain was managed in the emergency department. Prescription for Augmentin and ibuprofen provided. Advised follow-up with his dentist for definitive management. Patient discharged home in stable condition. Case discussed with ED attending Dr. Casey. Return precautions reviewed in depth, the patient is instructed to return to the emergency department with any new, worsening, or concerning symptoms. Patient verbalized understanding. Undiagnosed new problem with uncertain prognosis? @ -None Drug Therapy requiring intensive monitoring for toxicity (Heparin, Nitro, Insulin, Cardizem)? @ -None Were any procedures done? @ -None Diagnosis/symptom? @ -Dental abscess Acute, or Chronic, or Acute on Chronic? @ -Acute Uncomplicated (without systemic symptoms) or Complicated (systemic symptoms)? @ -Uncomplicated Side effects of treatment? @ -None Exacerbation, Progression, or Severe Exacerbation] @ -Not applicable Poses a threat to life or bodily function? @ -No Disposition Clinical Impression: Dental abscess, Nicotine dependence Disposition: HOME SELF-CARE Instructions (If sedation given, give patient instructions): Dental Abscess (ED) Additional Instructions: Return to the emergency department with any new, worsening, or concerning symptoms. Take the antibiotic as prescribed for 10 days. Alternate with ibuprofen and Tylenol as needed for pain relief. Follow up with your primary care provider in 1-2 days. Prescriptions: Amoxic-Pot Clav 875-125Mg [Augmentin 875-125] 1 tab PO Q12HR 10 Days #20 tab Ibuprofen [Motrin] 800 mg PO Q8H PRN #30 tab PRN Reason: Pain Is patient prescribed a controlled substance at d/c from ED?: No Referrals: None,Stated [Primary Care Provider] - 1-2 days Time of Disposition: 15:05
[2024-08-28] MEDS: HYDROmorphone 1 MG/ML 1 ML SYRINGE IM STA (15:06)
[2024-08-28] MEDS: ACET/COD 300 MG/30 MG STARTER PACK 6 TAB BTL PO STA (15:07)
[2024-08-28] MEDS: KETOROLAC 15 MG/ML 1 ML VIAL IM STA (15:07)
[2024-08-28 15:25] VITALS: BP 145/89; PULSE 75; RESP 18; TEMP 98.1
== END 2024-08-28 15:30 | disposition home or self-care (01) ==
LOC: EC 14:31
CPT/HCPCS: 96372; 99283

== ENCOUNTER 2024-08-29 02:29 | Emergency (ER) | payer OTHER ==
[2024-08-29 02:33] VITALS: RESP 18
--- NOTE | 2024-08-29 02:58 | ED ---
ENT HPI - General Chief complaint: Dental/Oral Stated complaint: dental pain Time Seen by Provider: 08/29/24 02:40 Source: patient, RN notes reviewed Mode of arrival: ambulatory Limitations: no limitations - History of Present Illness Initial comments: 43-year-old male presents emergency department for a recheck of dental pain. Patient was evaluated earlier in the day on 08/28/2024 for dental pain and was provided with dose of antibiotic in the emergency department was sent home prescription for an antibiotic and ibuprofen. 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 He denies fevers, chills, nausea, vomiting, trismus, drooling, shortness of breath or difficulty breathing. - Related Data Home Medications Medication Instructions Recorded Confirmed Dextroamphetamine/Amphetamine 20 mg PO DAILY 06/05/15 06/05/15 [Adderall] Hydrocodone/Acetaminophen [[place] 1 each PO BID 06/05/15 06/05/15 10-325] lisinopriL [Prinivil] 10 mg PO DAILY 06/05/15 06/05/15 Previous Rx's Medication Instructions Recorded Albuterol Sulfate [Proair Hfa] 1 - 2 puff INHALATION Q6HR PRN #1 06/05/15 inhaler HYDROcodone/APAP 10-325MG [[place] 1 each PO Q12H PRN #20 tab 06/05/15 10] predniSONE [Deltasone] 20 mg PO BID #10 tab 06/05/15 Pramox-Calamine 1-8% Lotion 1 applic TOPICAL QID #1 bottle 06/18/18 [Caladryl] diphenhydrAMINE [Benadryl] 50 mg PO QID PRN #20 capsule 06/18/18 Famotidine [Pepcid] 20 mg PO BID #20 tablet 06/25/18 Permethrin 5% Cream [Elimite] 1 applic TOPICAL ONCE #1 tube 06/25/18 diphenhydrAMINE [Benadryl] 1 - 2 tab PO Q6HR PRN #30 capsule 06/25/18 predniSONE [Deltasone] 40 mg PO DAILY 5 Days tab 06/25/18 HYDROcodone/APAP 5-325MG [[place] 1 tab PO Q6HR PRN 3 Days #12 tab 04/29/19 5-325] Penicillin V Potassium [Pen Vee K] 500 mg PO QID 7 Days #28 tablet 04/29/19 predniSONE 30 mg PO BID #42 tab 05/14/20 valACYclovir HCL [Valacyclovir] 1,000 mg PO Q8H #10 tab 05/14/20 Azithromycin [Zithromax] 1,000 mg PO DAILY 1 Days #2 tab 07/08/20 Cephalexin [Keflex] 500 mg PO Q6H #40 cap 07/08/20 Albuterol Inhaler [Ventolin Hfa 2 puff INHALATION RT-QID PRN #8 gm 03/26/22 Inhaler] EPINEPHrine (Auto Inject) [Epipen] 0.3 mg IM ONCE PRN #1 each 03/26/22 Azithromycin [Zithromax Z Pack] 0 tab PO DIRECTED #6 tab 09/12/22 Ipratropium-Albuterol Nebulize 3 ml INHALATION QID #50 each 09/12/22 [Duoneb 0.5 mg-3 mg/3 ml Soln] predniSONE 50 mg PO DAILY #5 tab 09/12/22 Amoxic-Pot Clav 875-125Mg 1 tab PO Q12HR 10 Days #20 tab 08/28/24 [Augmentin 875-125] Ibuprofen [Motrin] 800 mg PO Q8H PRN #30 tab 08/28/24 Allergies Allergy/AdvReac Type Severity Reaction Status Date / Time prochlorperazine edisylate Allergy Unknown Verified 08/29/24 02:33 [From Compazine] prochlorperazine maleate Allergy Unknown Verified 08/29/24 02:33 [From Compazine] Review of Systems ROS Statement: Those systems with pertinent positive or pertinent negative responses have been documented in the HPI. ROS Other: All systems not noted in ROS Statement are negative. Past Medical History Past Medical History: Asthma, COPD, Hypertension, Thyroid Disorder History of Any Multi-Drug Resistant Organisms: C-DIFF Date of last positivie culture/infection: 2009 MDRO Source:: stool Past Surgical History: Orthopedic Surgery Additional Past Surgical History / Comment(s): Right arm, left hand, Past Psychological History: ADD/ADHD Smoking Status: Current every day smoker Past Alcohol Use History: None Reported Past Drug Use History: Marijuana, Methamphetamine General Exam Limitations: no limitations General appearance: alert, in no apparent distress Eye exam: Present: normal appearance, PERRL, EOMI. Absent: scleral icterus, conjunctival injection, periorbital swelling Expanded Mouth exam: Present: other (left sided facial edema, no erythema) Teeth exam: Present: dental caries, fractured tooth #, other (multiple missing teeth, overall poor dentition) Neck exam: Present: normal inspection. Absent: tenderness, meningismus, lymphadenopathy Respiratory exam: Present: wheezes, rhonchi. Absent: normal lung sounds bilaterally, respiratory distress, rales, stridor Cardiovascular Exam: Present: regular rate, normal rhythm, normal heart sounds. Absent: systolic murmur, diastolic murmur, rubs, gallop, clicks GI/Abdominal exam: Present: soft, normal bowel sounds. Absent: distended, te nderness, guarding, rebound, rigid Skin exam: Present: warm, dry, intact, normal color. Absent: rash Course Vital Signs 08/29/24 02:30 Temperature 97.2 F L Pulse Rate 95 Respiratory 18 Rate Blood Pressure 179/102 O2 Sat by Pulse 96 Oximetry Medical Decision Making - Medical Decision Making Was pt. sent in by a medical professional or institution (, PA, DESIGN ENGINEERING TECHNICIAN, urgent care, hospital, or senior care...) When possible be specific @ -No Did you speak to anyone other than the patient for history (EMS, parent, family, police, friend...)? What history was obtained from this source @ -No Did you review nursing and triage notes (agree or disagree)? Why? @ -I reviewed and agree with nursing and triage notes Were old charts reviewed (outside hosp., previous admission, EMS record, old EKG, old radiological studies, urgent care reports/EKG's, senior care records)? Report findings @. Patient's previous emergency department visit note where he was provided with dose of Rocephin and prescribed Augmentin outpatient. Differential Diagnosis (chest pain, altered mental status, abdominal pain women, abdominal pain men, vaginal bleeding, weakness, fever, dyspnea, syncope, headache, dizziness, GI bleed, back pain, seizure, CVA, palpatations, mental health, musculoskeletal)? @ -Dental abscess, dental caries, pulpitis, dental infection, this list is not all inclusive EKG interpreted by me (3pts min.). @ -As above X-rays interpreted by me (1pt min.). @ -None done CT interpreted by me (1pt min.). @ -None done U/S interpreted by me (1pt. min.). @ -None done What testing was considered but not performed or refused? (CT, X-rays, U/S, labs)? Why? @ -None What meds were considered but not given or refused? Why? @ -None Did you discuss the management of the patient with other professionals (professionals i.e. , PA, DESIGN ENGINEERING TECHNICIAN, lab, RT, psych nurse, director social welfare, program project analyst, teacher, consumer loan officer, catalytic case operator)? Give summary @ -No Was smoking cessation discussed for >3mins.? @ -No Was critical care preformed (if so, how long)? @ -No Were there social determinants of health that impacted care today? How? (Homelessness, low income, unemployed, alcoholism, drug addiction, transportation, low edu. Level, literacy, decrease access to med. care, longterm, rehab)? @ -No Was there de-escalation of care discussed even if they declined (Discuss DNR or withdrawal of care, Hospice)? DNR status @ -No What co-morbidities impacted this encounter? (DM, HTN, Smoking, COPD, CAD, Cancer, CVA, ARF, Chemo, Hep., AIDS, mental health diagnosis, sleep apnea, morbid obesity)? @ -None Was patient admitted / discharged? Hospital course, mention meds given and route, prescriptions, significant lab abnormalities, going to OR and other pertinent info. @ -Discharge. 43-year-old male with dental pain and facial swelling. On evaluation patient's vitals are stable. He is noted to have left-sided facial swelling with no erythema. Overall poor dentition on exam with multiple missing teeth and fractured teeth with no evidence of abscess. Patient is provided with dose of Augmentin in the emergency department and ibuprofen instructed to take prescribed Augmentin and contact a dentist in the morning to schedule a follow- up appointment for further evaluation. All questions answered at bedside and strict return parameters discussed with the patient he is verbalized understanding. Discussed with Dr. Aguilar Undiagnosed new problem with uncertain prognosis? @ -No Drug Therapy requiring intensive monitoring for toxicity (Heparin, Nitro, Insulin, Cardizem)? @ -No Were any procedures done? @ -No Diagnosis/symptom? @ -dental infection Acute, or Chronic, or Acute on Chronic? @ -acute Uncomplicated (without systemic symptoms) or Complicated (systemic symptoms)? @ -uncomplicated Side effects of treatment? @ -No Exacerbation, Progression, or Severe Exacerbation? @ -No Poses a threat to life or bodily function? How? (Chest pain, [place], [place], pneumonia, PE, COPD, DKA, ARF, appy, cholecystitis, CVA, Diverticulitis, Homicidal, Suicidal, threat to staff... and all critical care pts) @ -No Disposition Clinical Impression: Dental infection Disposition: HOME SELF-CARE Condition: Stable Instructions (If sedation given, give patient instructions): Toothache (ED) Additional Instructions: Please return to the Emergency Department if symptoms worsen or any other concerns. Recommend that you picking supervisor the antibiotic that was prescribed, Augmentin, and take this as indicated. Additionally, take Motrin for inflammation and pain relief. Call dentist in the morning to schedule an appointment for further evaluation. Is patient prescribed a controlled substance at d/c from ED?: No Referrals: None,Stated [Primary Care Provider] - 1-2 days Time of Disposition: 02:58
[2024-08-29] MEDS: IBUPROFEN 800 MG TAB PO STA (03:04)
[2024-08-29] MEDS: AMOXIC-POT CLAV 875-125MG 1 EACH TAB PO STA (03:05)
[2024-08-29 03:11] VITALS: BP 160/91; PULSE 81; TEMP 97.8
== END 2024-08-29 03:11 | disposition home or self-care (01) ==
LOC: EC 02:29
CPT/HCPCS: 99283

== ENCOUNTER 2025-05-13 16:10 | Emergency (ER) | payer OTHER ==
[2025-05-13] MEDS: IPRATROPIUM-ALBUTEROL 3 ML NEB INHALATION STA (16:27)
--- NOTE | 2025-05-13 16:29 | ED ---
SOB HPI - General Chief Complaint: Shortness of Breath Stated Complaint: CLARK Time Seen by Provider: 05/13/25 16:26 Source: patient, family, RN notes reviewed, old records reviewed Mode of arrival: wheelchair Limitations: no limitations - History of Present Illness Initial Comments: 44-year-old male presented the ER for evaluation of shortness of breath. Patient reports a past medical history significant of asthma, COPD, hypertension and thyroid disorder. Family, bedside, aiding in HPI given respiratory distress. Family reports he was pulling weeds in the garden this afternoon when he started to feel short of breath. Patient attempted to use rescue albuterol inhaler without improvement of symptoms which prompted emergency department visit. Patient reports a tightness in his central chest without radiation. Patient admits to smoking and a history of IV drug abuse. He denies any history of DVT/PEs, blood thinner use, calf pain or edema. Patient admits to recent distant travel. He denies any recent fevers, chills, cough, congestion, a bdominal pain, constipation/diarrhea or peripheral edema. Patient does admit to having numerous known allergies including grass and pollen. - Related Data Home Medications Medication Instructions Recorded Confirmed Dextroamphetamine/Amphetamine 20 mg PO DAILY 06/05/15 06/05/15 [Adderall] Hydrocodone/Acetaminophen [[place] 1 each PO BID 06/05/15 06/05/15 10-325] lisinopriL [Prinivil] 10 mg PO DAILY 06/05/15 06/05/15 Previous Rx's Medication Instructions Recorded Albuterol Sulfate [Proair Hfa] 1 - 2 puff INHALATION Q6HR PRN #1 06/05/15 inhaler HYDROcodone/APAP 10-325MG [[place] 1 each PO Q12H PRN #20 tab 06/05/15 10] predniSONE [Deltasone] 20 mg PO BID #10 tab 06/05/15 Pramox-Calamine 1-8% Lotion 1 applic TOPICAL QID #1 bottle 06/18/18 [Caladryl] diphenhydrAMINE [Benadryl] 50 mg PO QID PRN #20 capsule 06/18/18 Famotidine [Pepcid] 20 mg PO BID #20 tablet 06/25/18 Permethrin 5% Cream [Elimite] 1 applic TOPICAL ONCE #1 tube 06/25/18 diphenhydrAMINE [Benadryl] 1 - 2 tab PO Q6HR PRN #30 capsule 06/25/18 predniSONE [Deltasone] 40 mg PO DAILY 5 Days tab 06/25/18 HYDROcodone/APAP 5-325MG [[place] 1 tab PO Q6HR PRN 3 Days #12 tab 04/29/19 5-325] Penicillin V Potassium [Pen Vee K] 500 mg PO QID 7 Days #28 tablet 04/29/19 predniSONE 30 mg PO BID #42 tab 05/14/20 valACYclovir HCL [Valacyclovir] 1,000 mg PO Q8H #10 tab 05/14/20 Azithromycin [Zithromax] 1,000 mg PO DAILY 1 Days #2 tab 07/08/20 Cephalexin [Keflex] 500 mg PO Q6H #40 cap 07/08/20 Albuterol Inhaler [Ventolin Hfa 2 puff INHALATION RT-QID PRN #8 gm 03/26/22 Inhaler] EPINEPHrine (Auto Inject) [Epipen] 0.3 mg IM ONCE PRN #1 each 03/26/22 Azithromycin [Zithromax Z Pack] 0 tab PO DIRECTED #6 tab 09/12/22 Ipratropium-Albuterol Nebulize 3 ml INHALATION QID #50 each 09/12/22 [Duoneb 0.5 mg-3 mg/3 ml Soln] predniSONE 50 mg PO DAILY #5 tab 09/12/22 Amoxic-Pot Clav 875-125Mg 1 tab PO Q12HR 10 Days #20 tab 08/28/24 [Augmentin 875-125] Ibuprofen [Motrin] 800 mg PO Q8H PRN #30 tab 08/28/24 Albuterol Inhaler [Ventolin Hfa 1 - 2 puff INHALATION Q6H PRN #1 05/13/25 Inhaler] each EPINEPHrine (Auto Inject) [Epipen] 0.3 mg IM ONCE PRN #1 each 05/13/25 predniSONE 50 mg PO DAILY #5 tab 05/13/25 Allergies Allergy/AdvReac Type Severity Reaction Status Date / Time prochlorperazine edisylate Allergy Unknown Verified 05/13/25 16:14 [From Compazine] prochlorperazine maleate Allergy Unknown Verified 06/30/25 16:14 [From Compazine] Review of Systems ROS Statement: Those systems with pertinent positive or pertinent negative responses have been documented in the HPI. ROS Other: All systems not noted in ROS Statement are negative. Past Medical History Past Medical History: Asthma, COPD, Hypertension, Thyroid Disorder History of Any Multi-Drug Resistant Organisms: C-DIFF Date of last positivie culture/infection: 2009 MDRO Source:: stool Past Surgical History: Orthopedic Surgery Additional Past Surgical History / Comment(s): Right arm, left hand, Past Psychological History: ADD/ADHD Smoking Status: Current every day smoker Past Alcohol Use History: None Reported Past Drug Use History: Marijuana, Methamphetamine General Exam Limitations: no limitations General appearance: alert, anxious, in distress Respiratory exam: Present: respiratory distress, wheezes (Throughout all lung martinez), accessory muscle use Cardiovascular Exam: Present: normal rhythm, tachycardia, normal heart sounds Extremities exam: Present: normal inspection, full ROM, normal capillary refill. Absent: tenderness, pedal edema, joint swelling, calf tenderness Neurological exam: Present: alert, oriented X3, CN II-XII intact Skin exam: Present: warm, intact, normal color, rash (uticaria lower abdomen and chest.), diaphoretic Course Vital Signs 05/13/25 05/13/25 05/13/25 16:11 16:24 16:28 Temperature 97.3 F L Pulse Rate 128 H 109 H Respiratory 38 H 36 H Rate Blood Pressure 94/29 O2 Sat by Pulse 90 L 94 L Oximetry 05/13/25 05/13/25 05/13/25 16:46 17:26 18:30 Temperature 97.9 F Pulse Rate 104 H 91 92 Respiratory 20 18 Rate Blood Pressure 106/71 141/98 O2 Sat by Pulse 99 100 Oximetry 05/13/25 20:16 Temperature 98.4 F Pulse Rate 87 Respiratory 16 Rate Blood Pressure 148/102 O2 Sat by Pulse 95 Oximetry - Reevaluation(s) Reevaluation #1: 05/13/25 16:52 Patient reevaluated. Patient reports mild improvement after DuoNeb's. Patient still complains of shortness of breath. Patient reports hives have now appeared on abdomen and chest. Patient admits to numerous allergies including grass and pollen. Reevaluation #2: 05/13/25 17:28 Patient reevaluated. Patient sleeping in exam room no signs of acute distress. Vital signs stable. Patient reporting great improvement of breathing. Improvement of rash. Medical Decision Making - Medical Decision Making Was pt. sent in by a medical professional or institution (, PA, OUTBOARD MOTORBOAT OPERATOR, urgent care, hospital, or fci...) When possible be specific @ -No Did you speak to anyone other than the patient for history (EMS, parent, family, police, friend...)? What history was obtained from this source @ -Family, bedside, aiding in HPI and past medical history given patient's respiratory distress. Did you review nursing and triage notes (agree or disagree)? Why? @ -I reviewed and agree with nursing and triage notes Were old charts reviewed (outside hosp., previous admission, EMS record, old EKG, old radiological studies, urgent care reports/EKG's, fci records)? Report findings @ -No old charts were reviewed Differential Diagnosis (chest pain, altered mental status, abdominal pain women, abdominal pain men, vaginal bleeding, weakness, fever, dyspnea, syncope, headache, dizziness, GI bleed, back pain, seizure, CVA, palpatations, mental health, musculoskeletal)? @ -Differential Dyspnea:Coronary syndrome, arrhythmia, tamponade, asthma, COPD, pulmonary embolism, pneumonia, pneumothorax, pulmonary effusion, anaphylaxis, diabetic ketoacidosis, flailed chest, pulmonary contusion, diaphragmatic rup ture, anemia, neuromuscular, this is not meant to be an all-inclusive list. EKG interpreted by me (3pts min.). @ -As above X-rays interpreted by me (1pt min.). @ -CXR interpreted me negative for focal consolidations, pneumothorax or pleural effusion. CT interpreted by me (1pt min.). @ -CTA chest is nondiagnostic for evaluation of pulmonary embolism given poor attenuation on exam. Nonspecific patchy focus seen in the right upper lobe may relate to underlying acute infectious/inflammatory process cannot exclude nodule. Nondependent focus is seen in the left mainstem bronchus likely represe nting secretions however endobronchial polyp cannot be excluded. U/S interpreted by me (1pt. min.). @ -None done What testing was considered but not performed or refused? (CT, X-rays, U/S, labs)? Why? @ -None What meds were considered but not given or refused? Why? @ -None Did you discuss the management of the patient with other professionals (professionals i.e. , PA, OUTBOARD MOTORBOAT OPERATOR, lab, RT, psych nurse, social organization professor, pharmacy teacher, teacher, business practices officer, director of casework department)? Give summary @ -No Was smoking cessation discussed for >3mins.? @ -I discussed smoking cessation for greater than 3 minutes. The risk of smoking were discussed with the patient including but not limited to risks of cancer, stroke, coronary artery disease and COPD. Also discussed with patient were multiple methods of quitting smoking. Lastly we discussed the financial cost of smoking. Was critical care preformed (if so, how long)? @ -No Were there social determinants of health that impacted care today? How? (Homelessness, low income, unemployed, alcoholism, drug addiction, transportation, low edu. Level, literacy, decrease access to med. care, residential, rehab)? @ -Patient does not have a PCP and is not on chronic medications. Was there de-escalation of care discussed even if they declined (Discuss DNR or withdrawal of care, Hospice)? DNR status @ -No What co-morbidities impacted this encounter? (DM, HTN, Smoking, COPD, CAD, Cancer, CVA, ARF, Chemo, Hep., AIDS, mental health diagnosis, sleep apnea, morbid obesity)? @ -Asthma, hypertension, hypothyroidism, history of IV drug abuse. Was patient admitted / discharged? Hospital course, mention meds given and route, prescriptions, significant lab abnormalities, going to OR and other pertinent info. @ -AMA. 44-year-old male presented the ER for evaluation of shortness of breath.Upon arrival patient with moderate signs of respiratory distress, diaphoretic with use of accessory muscles. Vital signs remarkable for tachycardia at 128 bpm, respiratory rate 38, blood pressure 94/92, oxygen saturation 96% on room air. Upon rooming patient placed on 6 L nasal cannula oxygen with improvement oxygen saturation 94%. Exam remarkable for significant wheezing noted throughout all lung martinez. 2 DuoNeb nebulizer treatments ordered at that time along with IV Solu-Medrol. Cardiac workup including D- dimer and troponin initiated. Patient reevaluated after initial medications patient reporting mild improvement of shortness of breath. Patient found at th at time to have a uticaric rash noted to chest and abdomen for which IV Benadryl and Pepcid was ordered for concern of allergic reaction as patient reports numerous allergies and was working in the yard today. Laboratory studies obtained remarkable for WBC 8.09, hemoglobin 16.5. Lactic 2.3 for which patient received IV fluid bolus. Troponin undetectable, <0.012. D-dimer elevated at 0.69 for which CTA chest was obtained. CTA chest is nondiagnostic for pulmonary embolism given contrast timing. There is a nonspecific patchy focus of the right upper lobe along with a nondependent focus seen in the left mainstem bronchus. Influenza, RSV and COVID-negative. TSH 62.5, free T4 0.46.EKG showing sinus tachycardia with no acute evidence of infarct or ischemia. Patient does report a history of hypothyroidism and is not currently on levothyroxine. He states he has been off of antihypertensive and thyroid medication for "a while". Patient having improvement of shortness of breath and wheezing resolved after second medications. Upon reevaluation, patient resting company in stretcher no signs of acute distress. Patient reported improvement of shortness of breath and wheezing. Patient educated on today's findings including nondiagnostic CTA along with lung nodule and bronchial nodule. Given patient's presenting symptoms, nondiagnostic CTA, family medical history and personal medical history along with patient not currently having a primary care physician, admission was considered and discussed with patient. Patient requesting discharge as he "has a lot going on at home". I discussed at length the risks of leaving AGAINST MEDICAL ADVICE with patient including . Patient verbally expressed understanding and agreement with risks and would like to go home. Patient disp layed medical decision-making capabilities. Prednisone, albuterol inhaler and EpiPen prescribed. I advised he follow-up closely with PCP and/or residency clinic within 2 to 3 days for reevaluation. Contact information provided. Patient verbally expressed understanding and states he will contact them tomorrow morning to schedule an appointment. Vital signs stable with oxygen saturation 95% on room air at discharge. Strict return parameters discussed. Patient verbally expressed understanding and agreement with care plan. Case discussed with ED attending, Dr. Glover. AMA form signed by patient. Undiagnosed new problem with uncertain prognosis? @ -No Drug Therapy requiring intensive monitoring for toxicity (Heparin, Nitro, Insulin, Cardizem)? @ -No Were any procedures done? @ -No Diagnosis/symptom? @ -AMA/allergic reaction/asthma exacerbation/elevated D-dimer Acute, or Chronic, or Acute on Chronic? @ -Acute Uncomplicated (without systemic symptoms) or Complicated (systemic symptoms)? @ -Complicated Side effects of treatment? @ -No Exacerbation, Progression, or Severe Exacerbation? @ -No Poses a threat to life or bodily function? How? (Chest pain, [place], AR, pneumonia, PE, COPD, DKA, ARF, appy, cholecystitis, CVA, Diverticulitis, Homicidal, Suicidal, threat to staff... and all critical care pts) @ -Yes, allergic reaction can lead to anaphylaxis which can be life- threatening. Cannot rule out PE or ACS - Lab Data Result diagrams: 05/13/25 16:28 05/13/25 16:28 Lab Results 05/13/25 05/13/25 05/13/25 Range/Units 16:28 16:28 16:28 WBC 8.09 (4.50-10.00) 10*3/uL RBC 5.20 (4.40-5.60) 10*6/uL Hgb 16.5 (13.0-17.0) g/dL Hct 47.0 (39.6-50.0) % MCV 90.4 (80.0-97.0) fL MCH 31.7 (27.0-32.0) pg MCHC 35.1 (32.0-37.0) g/dL Plt Count 368 (140-440) 10*3/uL MPV 8.9 L (9.5-12.2) fL Immature Gran % (Auto) 0.2 % Neutrophils % 45.4 % Lymphocytes % 44.1 % Monocytes % 5.6 % Eosinophils % 4.6 % Basophils % 0.1 % Immature Gran # 0.02 (0.00-0.04) 10*3/uL Neutrophils # 3.67 (1.80-7.70) 10*3/uL Lymphocytes # 3.57 (0.90-5.00) 10*3/uL Monocytes # 0.45 (0.20-1.00) 10*3/uL Eosinophils # 0.37 H (0.04-0.35) 10*3/uL Basophils # 0.01 (0.00-0.10) 10*3/uL PT 10.7 (10.0-12.5) sec INR 1.0 (<1.2) APTT 22.3 (22.0-30.0) sec D-Dimer 0.69 H (<0.60) mg/L FEU Sodium 141 (137-145) mmol/L Potassium 4.3 (3.5-5.1) mmol/L Chloride 108 H (98-107) mmol/L Carbon Dioxide 20 L (22-30) mmol/L Anion Gap 13 mmol/L BUN 24 H (9-20) mg/dL Creatinine 1.06 (0.66-1.25) mg/dL Est GFR (CKD-EPI)AfAm >90 (>60 ml/min/1.73 sqM) Est GFR (CKD-EPI)NonAf 87 (>60 ml/min/1.73 sqM) Glucose 128 H (74-99) mg/dL Lactic Ac Sepsis Rflx Plasma Lactic Acid Loc (0.7-2.0) mmol/L Calcium 9.4 (8.4-10.2) mg/dL Total Bilirubin 0.6 (0.2-1.3) mg/dL AST 30 (17-59) U/L ALT 26 (4-49) U/L Alkaline Phosphatase 104 (38-126) U/L Troponin I (0.000-0.034) ng/mL Total Protein 7.3 (6.3-8.2) g/dL Albumin 4.5 (3.5-5.0) g/dL TSH (0.465-4.680) mIU/L Free T4 (0.78-2.19) ng/dL Influenza Type A (PCR) (Not Detectd) Influenza Type B (PCR) (Not Detectd) RSV (PCR) (Not Detectd) SARS-CoV-2 (PCR) (Not Detectd) 05/13/25 05/13/25 05/13/25 Range/Units 16:28 16:28 16:28 WBC (4.50-10.00) 10*3/uL RBC (4.40-5.60) 10*6/uL Hgb (13.0-17.0) g/dL Hct (39.6-50.0) % MCV (80.0-97.0) fL MCH (27.0-32.0) pg MCHC (32.0-37.0) g/dL Plt Count (140-440) 10*3/uL MPV (9.5-12.2) fL Immature Gran % (Auto) % Neutrophils % % Lymphocytes % % Monocytes % % Eosinophils % % Basophils % % Immature Gran # (0.00-0.04) 10*3/uL Neutrophils # (1.80-7.70) 10*3/uL Lymphocytes # (0.90-5.00) 10*3/uL Monocytes # (0.20-1.00) 10*3/uL Eosinophils # (0.04-0.35) 10*3/uL Basophils # (0.00-0.10) 10*3/uL PT (10.0-12.5) sec INR (<1.2) APTT (22.0-30.0) sec D-Dimer (<0.60) mg/L FEU Sodium (137-145) mmol/L Potassium (3.5-5.1) mmol/L Chloride (98-107) mmol/L Carbon Dioxide (22-30) mmol/L Anion Gap mmol/L BUN (9-20) mg/dL Creatinine (0.66-1.25) mg/dL Est GFR (CKD-EPI)AfAm (>60 ml/min/1.73 sqM) Est GFR (CKD-EPI)NonAf (>60 ml/min/1.73 sqM) Glucose (74-99) mg/dL Lactic Ac Sepsis Rflx Plasma Lactic Acid Loc 2.3 H* (0.7-2.0) mmol/L Calcium (8.4-10.2) mg/dL Total Bilirubin (0.2-1.3) mg/dL AST (17-59) U/L ALT (4-49) U/L Alkaline Phosphatase (38-126) U/L Troponin I <0.012 (0.000-0.034) ng/mL Total Protein (6.3-8.2) g/dL Albumin (3.5-5.0) g/dL TSH 62.500 H (0.465-4.680) mIU/L Free T4 0.46 L (0.78-2.19) ng/dL Influenza Type A (PCR) (Not Detectd) Influenza Type B (PCR) (Not Detectd) RSV (PCR) (Not Detectd) SARS-CoV-2 (PCR) (Not Detectd) 06/30/25 06/30/25 Range/Units 16:47 17:21 WBC (4.50-10.00) 10*3/uL RBC (4.40-5.60) 10*6/uL Hgb (13.0-17.0) g/dL Hct (39.6-50.0) % MCV (80.0-97.0) fL MCH (27.0-32.0) pg MCHC (32.0-37.0) g/dL Plt Count (140-440) 10*3/uL MPV (9.5-12.2) fL Immature Gran % (Auto) % Neutrophils % % Lymphocytes % % Monocytes % % Eosinophils % % Basophils % % Immature Gran # (0.00-0.04) 10*3/uL Neutrophils # (1.80-7.70) 10*3/uL Lymphocytes # (0.90-5.00) 10*3/uL Monocytes # (0.20-1.00) 10*3/uL Eosinophils # (0.04-0.35) 10*3/uL Basophils # (0.00-0.10) 10*3/uL PT (10.0-12.5) sec INR (<1.2) APTT (22.0-30.0) sec D-Dimer (<0.60) mg/L FEU Sodium (137-145) mmol/L Potassium (3.5-5.1) mmol/L Chloride (98-107) mmol/L Carbon Dioxide (22-30) mmol/L Anion Gap mmol/L BUN (9-20) mg/dL Creatinine (0.66-1.25) mg/dL Est GFR (CKD-EPI)AfAm (>60 ml/min/1.73 sqM) Est GFR (CKD-EPI)NonAf (>60 ml/min/1.73 sqM) Glucose (74-99) mg/dL Lactic Ac Sepsis Rflx Y Plasma Lactic Acid Loc (0.7-2.0) mmol/L Calcium (8.4-10.2) mg/dL Total Bilirubin (0.2-1.3) mg/dL AST (17-59) U/L ALT (4-49) U/L Alkaline Phosphatase (38-126) U/L Troponin I (0.000-0.034) ng/mL Total Protein (6.3-8.2) g/dL Albumin (3.5-5.0) g/dL TSH (0.465-4.680) mIU/L Free T4 (0.78-2.19) ng/dL Influenza Type A (PCR) Not Detected (Not Detectd) Influenza Type B (PCR) Not Detected (Not Detectd) RSV (PCR) Not Detected (Not Detectd) SARS-CoV-2 (PCR) Not Detected (Not Detectd) - EKG Data -: EKG Interpreted by Me EKG Comments: EKG taken at 16: 19 showing a sinus tachycardia. Ventricular rate 114, PA interval 170, QRS duration 95, QT/QTc 310/378. - Radiology Data Radiology results: report reviewed, image reviewed Disposition Clinical Impression: Allergic reaction, Asthma exacerbation, Elevated d-dimer Disposition: LEFT AGAINST MEDICAL ADVICE Condition: Stable Additional Instructions: Follow-up closely with PCP or residency clinic. Have a low threshold of returning to the ER for any new or worsening concerns. Prescriptions: EPINEPHrine (Auto Inject) [Epipen] 0.3 mg IM ONCE PRN #1 each PRN Reason: Anaphylaxis predniSONE 50 mg PO DAILY #5 tab Albuterol Inhaler [Ventolin Hfa Inhaler] 1 - 2 puff INHALATION Q6H PRN #1 each PRN Reason: Shortness Of Breath Is patient prescribed a controlled substance at d/c from ED?: No Referrals: None,Stated [Primary Care Provider] - 1-2 days [facility] [NON-STAFF] - 1-2 days [facility] Family[facility] [NON-STAFF] - 1-2 days Forms: Area PCPs Time of Disposition: 20:08
[2025-05-13] MEDS: methylPREDNISolone SOD SUCCI 125 MG/2 ML VIAL IV STA (16:34)
[2025-05-13 16:50] LABS: Basophils # (A) 0.01 10*3/uL (0.00-0.10); Basophils % (A) 0.1 %; Eosinophils # (A) 0.37 10*3/uL (0.04-0.35); Eosinophils % (A) 4.6 %; HGB 16.5 g/dL (13.0-17.0); Lymphocytes # (A) 3.57 10*3/uL (0.90-5.00); Lymphocytes % (A) 44.1 %; MCH 31.7 pg (27.0-32.0); MCHC 35.1 g/dL (32.0-37.0); MCV 90.4 fL (80.0-97.0); Mean Platelet Volume 8.9 fL (9.5-12.2); Monocytes # (A) 0.45 10*3/uL (0.20-1.00); Monocytes % (A) 5.6 %; Neutrophils # (A) 3.67 10*3/uL (1.80-7.70); Neutrophils % (A) 45.4 %; Platelet Count 368 10*3/uL (140-440); RDW 12.7 % (11.5-14.5); WBC 8.09 10*3/uL (4.50-10.00)
[2025-05-13] MEDS: diphenhydrAMINE 50 MG/ML 1 ML VIAL IVP STA (16:59)
[2025-05-13] MEDS: FAMOTIDINE 20 MG/2 ML VIAL IV STA (16:59)
[2025-05-13 17:03] LABS: ALT 26 U/L (4-49); AST 30 U/L (17-59); African American GFR (CKD) >90 (>60 ml/min/1.73 sqM); Albumin 4.5 g/dL (3.5-5.0); Alkaline Phosphatase 104 U/L (38-126); Anion Gap 13 mmol/L; Blood Urea Nitrogen 24 mg/dL (9-20); Calcium 9.4 mg/dL (8.4-10.2); Carbon Dioxide 20 mmol/L (22-30); Chloride 108 mmol/L (98-107); Glucose 128 mg/dL (74-99); Non-African American GFR(CKD) 87 (>60 ml/min/1.73 sqM); Potassium 4.3 mmol/L (3.5-5.1); Sodium 141 mmol/L (137-145); Total Bilirubin 0.6 mg/dL (0.2-1.3); Total Protein 7.3 g/dL (6.3-8.2)
--- NOTE | 2025-05-13 17:22 | XR ---
EXAMINATION TYPE: XR chest 2V DATE OF EXAM: 05/13/2025 5:17 PM COMPARISON: Multiple radiographs, with the most recent on 05/26/2023 TECHNIQUE: XR chest 2V Frontal and lateral views of the chest. CLINICAL INDICATION:Male, 44 years old with history of difficulty breathing; FINDINGS: Lungs/Pleura: There is no evidence of pleural effusion, focal consolidation, or pneumothorax. Pulmonary vascularity: Unremarkable. Heart/mediastinum: Cardiomediastinal silhouette is unremarkable. Musculoskeletal: No acute osseous pathology. Remote healed mid left clavicular fracture. IMPRESSION: No acute cardiopulmonary disease/process. [facility], , 05/13/2025 5:19 PM
[2025-05-13] MEDS: SODIUM CHLORIDE 0.9% 1,000 ML IV ONE (17:26)
[2025-05-13 18:04] LABS: Influenza A Not Detected (Not Detectd); Influenza B Not Detected (Not Detectd); RSV Not Detected (Not Detectd)
[2025-05-13 18:09] LABS: Partial Thromboplastin Time 22.3 sec (22.0-30.0); Prothrombin Time 10.7 sec (10.0-12.5)
[2025-05-13 19:08] LABS: T4, Free (Free Thyroxine) 0.46 ng/dL (0.78-2.19)
--- NOTE | 2025-05-13 19:52 | CT ---
EXAMINATION TYPE: CT chest angio for PE CT DLP: 344 mGycm, Automated exposure control for dose reduction was used. DATE OF EXAM: 05/13/2025 6:57 PM COMPARISON: Chest radiograph from same day. CLINICAL INDICATION:Male, 44 years old with history of sob/elevated ddimer; SOB pt was working in [employer] when it started, pt had hx of asthma, pt is diaphoretic TECHNIQUE/CONTRAST: CTA scan of the thorax is performed with IV Contrast, patient injected with 100 ml mL of Isovue 370, MIP images are created and reviewed these are created on a separate workstation.. FINDINGS: Pulmonary Artery: Evaluation of the pulmonary arterial vasculature is nondiagnostic given poor attenu ation on exam. The pulmonary artery is of normal size. Lungs/Pleura: Bibasilar atelectasis. There is a nonspecific patchy area of attenuation in the right u pper lobe measures up to 1.3 cm. No evidence of pleural effusion or pneumothorax. Airway: Large airways are patent. There are scattered areas of secretion suggested within the trachea and proximal large airways with a focal nondependent focus of attenuation seen in the left mainstem bronchus. Heart: Heart is within normal limits for size. Vasculature: No evidence of aortic aneurysm. Mediastinum: Multiple nonenlarged lymph nodes are seen with no gross evidence of adenopathy. Musculoskeletal: No acute osseous abnormalities. Soft Tissues/lymph nodes: Unremarkable. Lower neck: No significant findings. Upper Abdomen: No significant findings. IMPRESSION: 1. Exam is nondiagnostic for evaluation of pulmonary embolism given poor attenuation on exam. Conside r repeating CT PE if patient's kidney function allows and if still clinically warranted. Correlation with DVT evaluation can also be considered. 2. Nonspecific patchy focus seen in the right upper lobe may relate to an underlying acute infectious /inflammatory process however given size recommend a [address] chest follow-up to assess for resolut ion and exclude underlying nodule. 3. Nondependent focus is seen in the left mainstem bronchus likely representing secretions however en dobronchial polyp cannot be excluded. If persistent on short-term follow-up bronchoscopy can then be considered. [facility], , 05/13/2025 7:50 PM
[2025-05-13 20:19] VITALS: BP 148/102; PULSE 87; RESP 16; TEMP 98.4
== END 2025-05-13 20:19 | disposition home or self-care (01) ==
LOC: EC 16:10
DX: J45.901 Unspecified asthma with (acute) exacerbation (principal); R79.1 Abnormal coagulation profile; T78.2XXA Anaphylactic shock, unspecified, initial encounter; R00.0 Tachycardia, unspecified; I10 Essential (primary) hypertension; E03.9 Hypothyroidism, unspecified; J45.909 Unspecified asthma, uncomplicated; F17.200 Nicotine dependence, unspecified, uncomplicated; Z88.8 Allergy status to other drugs, medicaments and biological substances
CPT/HCPCS: 36415; 94640; 93005; 85379; 84439; 80053; 84443; 83605; 84484; 85025; 85610; 85730; 87636; 71046; 71275; 99285; 96374; 96375 ×2; 96361; J1200; Q9967 ×2; J2919; J1308